=== PATIENT | female | born 1995 | race Caucasian/White ===

== ENCOUNTER 2018-07-13 11:04 | Emergency (ER) | payer OTHER ==
[~2018-07-13] VITALS: Ht 157.5 cm; Wt 72.6 kg
--- NOTE | 2018-07-13 11:35 | ED Abdominal Pain ---
General Stated Complaint: ABD PAIN; FEVER Source of Information: Patient, RN Notes Reviewed Exam Limitations: No Limitations History of Present Illness Date Seen by Provider: July 13, 2018 Time Seen by Provider: 11:35 Initial Comments Patient presents c/ c/o RLQ abdominal pain that radiates to her right flank. States she awoke c/ the pain this AM. (+) associated fever. (+) PMH of UTI's. Timing/Duration: 1-3 Hours Severity/Quality: Moderate (6/10) Location: RLQ Radiation: Flank (right) Activities at Onset: None Modifying Factors: Improves With Other (nonr) Associated Symptoms: Denies Symptoms (x/ as noted.), Fever/Chills Allergies and Home Medications Allergies Coded Allergies: Sulfa (Sulfonamide Antibiotics) (Verified Allergy, Unknown, 07/13/18) Home Medications Cefuroxime Axetil 250 Mg Tablet, 250 MG PO BID Prescribed by: WYATT DE LA TORRE on 07/13/18 1320 Patient Home Medication List Home Medication List Reviewed: Yes Review of Systems Review of Systems Constitutional: see HPI Gastrointestinal: See HPI, Abdominal Pain (RLQ) Musculoskeletal: see HPI, back pain (right flank) All Other Systems Reviewed Negative Unless Noted: Yes (Negative excepted noted.) Physical Exam Vital Signs Vital Signs - First Documented 07/13/18 07/13/18 11:51 13:28 Temp 98.4 Pulse 83 Resp 18 B/P (MAP) 120/68 (85) Pulse Ox 99 O2 Delivery Room Air Capillary Refill : Height/Weight/BMI Height: '" Weight: lbs. oz. kg; BMI Method: General Appearance: WD/WN, moderate distress, obese Respiratory: no respiratory distress Cardiovascular: regular rate, rhythm Gastrointestinal: soft, tenderness (RLQ) Rectal: deferred Back: CVA tenderness (R) Neurologic/Psychiatric: no motor/sensory deficits, alert, depressed affect ( tearful) Skin: warm/dry; No rash Progress/Results/Core Measures Results/Orders Lab Results Laboratory Tests Test 07/13/18 11:20 07/13/18 12:11 Range/Units Urine Color YELLOW Urine Clarity CLOUDY Urine pH 8.0 5-9 Urine Specific Tillson 1.015 L 1.016-1.022 Urine Protein NEGATIVE NEGATIVE Urine Glucose (UA) NEGATIVE NEGATIVE Urine Ketones NEGATIVE NEGATIVE Urine Nitrite NEGATIVE NEGATIVE Urine Bilirubin NEGATIVE NEGATIVE Urine Urobilinogen 0.2 NORMAL MG/DL Urine Leukocyte Esterase TRACE H NEGATIVE Urine RBC (Auto) NEGATIVE NEGATIVE Urine RBC 0-2 /HPF Urine WBC 2-5 /HPF Urine Squamous Epithelial Cells 5-10 /HPF Urine Crystals NONE /LPF Urine Bacteria LARGE H /HPF Urine Casts NONE /LPF Urine Mucus NONE /LPF Urine Culture Indicated YES Urine Test NEGATIVE NEGATIVE Urine Chlamydia trachomatis RNA Not Detected Not Detected Urine Neisseria gonorrhoeae RNA Not Detected Not Detected White Blood Count 18.3 H 4.3-11.0 10^3/uL Red Blood Count 4.92 4.35-5.85 10^6/uL Hemoglobin 13.5 11.5-16.0 G/DL Hematocrit 41 35-52 % Mean Corpuscular Volume 84 80-99 FL Mean Corpuscular Hemoglobin 27 25-34 PG Mean Corpuscular Hemoglobin Concent 33 32-36 G/DL Red Cell Distribution Width 13.2 10.0-14.5 % Platelet Count 289 130-400 10^3/uL Mean Platelet Volume 9.6 7.4-10.4 FL Neutrophils (%) (Auto) 81 H 42-75 % Lymphocytes (%) (Auto) 11 L 12-44 % Monocytes (%) (Auto) 7 0-12 % Eosinophils (%) (Auto) 0 0-10 % Basophils (%) (Auto) 0 0-10 % Neutrophils # (Auto) 14.7 H 1.8-7.8 X 10^3 Lymphocytes # (Auto) 2.0 1.0-4.0 X 10^3 Monocytes # (Auto) 1.3 H 0.0-1.0 X 10^3 Eosinophils # (Auto) 0.1 0.0-0.3 10^3/uL Basophils # (Auto) 0.0 0.0-0.1 10^3/uL Neutrophils % (Manual) 87 % Lymphocytes % (Manual) 8 % Monocytes % (Manual) 3 % Eosinophils % (Manual) 0 % Basophils % (Manual) 0 % Band Neutrophils 2 % Sodium Level 139 135-145 MMOL/L Potassium Level 4.3 3.6-5.0 MMOL/L Chloride Level 102 98-107 MMOL/L Carbon Dioxide Level 25 21-32 MMOL/L Anion Gap 12 5-14 MMOL/L Blood Urea Nitrogen 12 7-18 MG/DL Creatinine 0.89 0.60-1.30 MG/DL Estimat Glomerular Filtration Rate > 60 BUN/Creatinine Ratio 13 Glucose Level 104 70-105 MG/DL Calcium Level 8.9 8.5-10.1 MG/DL Corrected Calcium 8.9 8.5-10.1 MG/DL Total Bilirubin 0.6 0.1-1.0 MG/DL Aspartate Amino Transf (AST/SGOT) 15 5-34 U/L Alanine Aminotransferase (ALT/SGPT) 15 0-55 U/L Alkaline Phosphatase 68 40-136 U/L Total Protein 7.4 6.4-8.2 GM/DL Albumin 4.0 3.2-4.5 GM/DL Micro Results Microbiology 07/13/18 Urine Culture - Final, Complete 3 or more isolates My Orders Orders - WYATT DE LA TORRE DO Ua Culture If Indicated (07/13/18 11:20) Hcg,Qualitative Urine (07/13/18 11:20) Urine Culture (07/13/18 11:20) Ed Iv/Invasive Line Start (07/13/18 11:50) Cbc With Automated Diff (07/13/18 11:50) Comprehensive Metabolic Panel (07/13/18 11:50) Neis James Dna Urine Test (07/13/18 11:50) Chlamydia Trachomatis Urine (07/13/18 11:50) Ct Abdomen/Pelvis W (07/13/18 11:53) Ketorolac Injection (Toradol Injection) (07/13/18 12:00) Iohexol Injection (Omnipaque 350 Mg/Ml 1 (07/13/18 12:00) Received Contrast (Hold Metformin- Contr (07/13/18 12:00) Sodium Chloride Flush (Catheter Flush Sy (07/13/18 12:00) Ns (Ivpb) (Sodium Chloride 0.9% Ivpb Bag (07/13/18 12:00) Manual Differential (07/13/18 12:11) Ceftriaxone For Iv Use (Rocephin For I (07/13/18 13:15) Medications Given in ED Vital Signs/I&O 07/13/18 07/13/18 11:51 13:28 Temp 98.4 98.3 Pulse 83 86 Resp 18 18 B/P (MAP) 120/68 (85) 120/72 (88) Pulse Ox 99 O2 Delivery Room Air Progress Progress Note : Progress Note symptoms improved p/ fluids and meds. Diagnostic Imaging Diagonstic Imaging: CT Plain Films/CT/US/NM/MRI: abdomen, pelvis (NAD) Departure Impression Primary Impression: Urinary tract infection Additional Impressions: Ovarian cyst Abdominal pain Disposition: 01 HOME, SELF-CARE Condition: Improved Departure-Patient Inst. Decision time for Depature: 13:16 Referrals: VANESSA FRANCO MD (PCP/Family) Primary Care Physician Patient Instructions: Ovarian Cyst (DC), Urinary Tract Infection, Adult (DC) Add. Discharge Instructions: RECOMMEND FOLLOW UP WITH EITHER DR. FRANCO, OR DR. VALDES REGARDING YOUR OVARIAN CYSTS. RECOMMEND 600 mg OF IBUPROFEN EVERY 6 HOURS FOR YOUR PAIN. MAY ALSO TAKE 1000 mg OF TYLENOL EVERY 6 HOURS IF NEEDED. DO NOT EXCEED 4000 mg OF TYLENOL IN A 24 HOUR PERIOD. Scripts Cefuroxime Axetil (Cefuroxime) 250 Mg Tablet 250 MG PO BID for UTI for 10 Days, #20 TAB 0 Refills Prov: WYATT DE LA TORRE DO 07/13/18 WYATT DE LA TORRE DO July 13, 2018 11:35
[2018-07-13 11:44] LABS: BACTERIA,URINE LARGE /HPF; BILIRUBIN,URINE NEGATIVE (NEGATIVE); CLARITY,URINE CLOUDY; COLOR,URINE YELLOW; GLUCOSE, URINE (UA) NEGATIVE (NEGATIVE); KETONES,URINE NEGATIVE (NEGATIVE); LEUKOCYTE ESTERASE ,URINE TRACE (NEGATIVE); NITRITE,URINE NEGATIVE (NEGATIVE); PROTEIN,URINE NEGATIVE (NEGATIVE); RBC,URINE 0-2 /HPF; UROBILINOGEN,URINE 0.2 MG/DL (NORMAL)
[2018-07-13 11:45] LABS: HCG,QUALITATIVE URINE NEGATIVE (NEGATIVE)
[2018-07-13] MEDS ORDERED: HOLD METFORMIN - RECEIVED CONTRAST 20 ML VIAL IV SCH (12:00)
[2018-07-13] MEDS ORDERED: IOHEXOL 350 MG/ML 100 ML (OMNIPAQUE 350) VIAL IV ONE (12:00)
[2018-07-13] MEDS ORDERED: KETOROLAC 30 MG/ML VIAL IV ONE (12:00)
[2018-07-13] MEDS ORDERED: CATHETER FLUSH 10 ML SYR IV PRN (12:00)
[2018-07-13] MEDS ORDERED: NS 100 ML (IVPB) BAG IV ONE (12:00)
[2018-07-13 12:20] LABS: HEMATOCRIT 41 % (35-52); HEMOGLOBIN 13.5 G/DL (11.5-16.0); MEAN CORPUSCULAR HEMOGLOBIN 27 PG (25-34); MEAN CORPUSCULAR HGB CONC 33 G/DL (32-36); MEAN CORPUSCULAR VOLUME 84 FL (80-99); PLATELET COUNT 289 10^3/uL (130-400); RED CELL DISTRIBUTION WIDTH 13.2 % (10.0-14.5); WHITE BLOOD COUNT 18.3 10^3/uL (4.3-11.0)
[2018-07-13 12:21] LABS: BASOPHILS % (AUTO) 0 % (0-10); EOSINOPHILS # (AUTO) 0.1 10^3/uL (0.0-0.3); EOSINOPHILS % (AUTO) 0 % (0-10); LYMPHOCYTES % (AUTO) 11 % (12-44); MEAN PLATELET VOLUME 9.6 FL (7.4-10.4); MONOCYTES # (AUTO) 1.3 X 10^3 (0.0-1.0); MONOCYTES % (AUTO) 7 % (0-12); NEUTROPHILS # (AUTO) 14.7 X 10^3 (1.8-7.8); NEUTROPHILS % (AUTO) 81 % (42-75)
[2018-07-13 12:41] LABS: BAND NEUTROPHILS 2 %; BASOPHILS % (MANUAL) 0 %; EOSINOPHILS % (MANUAL) 0 %; LYMPHOCYTES % (MANUAL) 8 %; MONOCYTES % (MANUAL) 3 %; NEUTROPHILS % (MANUAL) 87 %
[2018-07-13 12:43] LABS: CARBON DIOXIDE 25 MMOL/L (21-32); CHLORIDE 102 MMOL/L (98-107); POTASSIUM 4.3 MMOL/L (3.6-5.0); SODIUM 139 MMOL/L (135-145)
[2018-07-13 12:44] LABS: ALANINE AMINOTRANSFERASE 15 U/L (0-55); ALKALINE PHOSPHATASE 68 U/L (40-136); BILIRUBIN,TOTAL 0.6 MG/DL (0.1-1.0); BUN/CREATININE RATIO 13; CALCIUM 8.9 MG/DL (8.5-10.1); CREATININE SERUM 0.89 MG/DL (0.60-1.30); GFR ESTIMATED > 60; GLUCOSE 104 MG/DL (70-105)
[2018-07-13 12:45] LABS: TOTAL PROTEIN 7.4 GM/DL (6.4-8.2)
--- NOTE | 2018-07-13 13:07 | Diagnostic Imaging Report ---
PROCEDURE: CT abdomen and pelvis with contrast. TECHNIQUE: Multiple contiguous axial images were obtained through the abdomen and pelvis after administration of intravenous contrast. Auto Exposure Controls were utilized during the CT exam to meet ALARA standards for radiation dose reduction. INDICATION: Right flank pain radiating to the back. COMPARISON: No prior studies are available for comparison. FINDINGS: The lung bases are clear. No discrete liver mass is seen. Gallbladder is surgically absent. No biliary ductal dilatation is seen. Pancreas and spleen are unremarkable. There is no adrenal mass identified. Kidneys are unremarkable. No hydronephrosis is detected. The aorta is non-aneurysmal. The bowel loops appears to be normal caliber. Multiple cysts are identified in the pelvis, likely ovarian. Largest cyst on the right measures 2.8 cm. Largest cyst on the left is 3.8 cm. Uterus and bladder are unremarkable. There is a small amount of free fluid which is likely physiologic. The appendix is visualized and unremarkable. IMPRESSION: Bilateral adnexal cysts, likely ovarian. No other significant abnormality is identified. Dictated by: Dictated on workstation # [id number]
[2018-07-13] MEDS ORDERED: cefTRIAXone FOR IV USE 1,000 MG in WATER (STERILE) FOR INJECTION 10 ML IV ONE (13:15)
[2018-07-13] MEDS ORDERED: CEFU250T80 PO (13:20)
[2018-07-13 13:28] VITALS: BP 120/72
== END 2018-07-13 13:33 | disposition home or self-care (01) ==
LOC: ER FS 11:06
DX: N39.0 Urinary tract infection, site not specified (principal); N83.201 Unspecified ovarian cyst, right side; N83.202 Unspecified ovarian cyst, left side; Z88.2 Allergy status to sulfonamides
CPT/HCPCS: 36415; 74177; 80053; 81000; 84703; 85007; 85027; 87088; 87491; 87591; 96374; 96375

== ENCOUNTER 2018-09-18 23:13 | Emergency (ER) | payer OTHER ==
[~2018-09-18] VITALS: Ht 157.5 cm; Wt 72.6 kg
[~2018-09-18 23:13] MED LIST: CEFU250T80 PO
--- OUTSIDE RECORDS SUMMARY | 2018-09-18 23:18 | XMS REPORT | Continuity of Care Document ---
Author Organization Unknown Address Unknown Allergies Active Description Code Type Severity Reaction Onset Reported/Identified Relationship to Patient Clinical Status Yes Sulfa (Sulfonamide Antibiotics) [id number] Drug Allergy Unknown N/A 07/13/2018 Medications There is no data. Problems Date Dx Coded Attending Type Code Diagnosis Diagnosed By 07/15/2018 WYATT DE LA TORRE DO, Ot N39.0 URINARY TRACT INFECTION, SITE NOT SPECIF 07/15/2018 WYATT DE LA TORRE DO, Ot N83.201 UNSPECIFIED OVARIAN CYST, RIGHT SIDE 07/15/2018 WYATT DE LA TORRE DO, Ot N83.202 UNSPECIFIED OVARIAN CYST, LEFT SIDE 07/15/2018 WYATT DE LA TORRE DO, Ot R10.31 RIGHT LOWER QUADRANT PAIN 07/15/2018 WYATT DE LA TORRE DO, Ot Z88.2 ALLERGY STATUS TO SULFONAMIDES STATUS Procedures There is no data. Results Test Result Range Complete urinalysis with reflex to culture - 07/13/18 11:20 Urine color determination YELLOW NRG Urine clarity determination CLOUDY NRG Urine pH measurement by test strip 8.0 5-9 Specific gravity of urine by test strip 1.015 1.016-1.022 Urine protein assay by test strip, semi-quantitative NEGATIVE NEGATIVE Urine glucose detection by automated test strip NEGATIVE NEGATIVE Erythrocytes detection in urine sediment by light microscopy NEGATIVE NEGATIVE Urine ketones detection by automated test strip NEGATIVE NEGATIVE Urine nitrite detection by test strip NEGATIVE NEGATIVE Urine total bilirubin detection by test strip NEGATIVE NEGATIVE Urine urobilinogen measurement by automated test strip (mass/volume) 0.2 mg/dL NORMAL Urine leukocyte esterase detection by dipstick TRACE NEGATIVE Automated urine sediment erythrocyte count by microscopy (number/high power field) [HPF] NRG Automated urine sediment leukocyte count by microscopy (number/high power field) [HPF] NRG Bacteria detection in urine sediment by light microscopy LARGE NRG Squamous epithelial cells detection in urine sediment by light microscopy 5-10 NRG Crystals detection in urine sediment by light microscopy NONE NRG Casts detection in urine sediment by light microscopy NONE NRG Mucus detection in urine sediment by light microscopy NONE NRG Complete urinalysis with reflex to culture YES NRG Urine beta human chorionic gonadotropin (hCG) measurement - 07/13/18 11:20 Urine beta human chorionic gonadotropin (hCG) measurement NEGATIVE NEGATIVE Bacterial urine culture - 07/13/18 11:20 Bacterial urine culture 3 OR MORE NRG COLONY COUNT >100,000/ML NRG FTX;REPORTABLE GRAM POSITIVE ISOLATES; SUGGESTING NRG FREE TEXT ENTRY 2 PROBABLE COLLECTION CONTAMINATION WITH NRG FREE TEXT ENTRY 3 SKIN KRYSTYNA. NO SUSCEPTIBILITY PERFORMED. NRG Chlamydia DNA amp probe, urine - 07/13/18 11:20 Chlamydia DNA amp probe, urine Not Detected Not Detected Urine Neisseria gonorrhoeae DNA assay - 07/13/18 11:20 Gonorrhea amp DNA-urine Not Detected Not Detected Complete blood count (CBC) with automated white blood cell (WBC) differential - 07/13/18 12:11 Blood leukocytes automated count (number/volume) 18.3 10*3/uL 4.3-11.0 Blood erythrocytes automated count (number/volume) 4.92 10*6/uL 4.35-5.85 Venous blood hemoglobin measurement (mass/volume) 13.5 g/dL 11.5-16.0 Blood hematocrit (volume fraction) 41 % 35-52 Automated erythrocyte mean corpuscular volume 84 [foz_us] 80-99 Automated erythrocyte mean corpuscular hemoglobin (mass per erythrocyte) 27 pg 25-34 Automated erythrocyte mean corpuscular hemoglobin concentration measurement (mass/volume) 33 g/dL 32-36 Automated erythrocyte distribution width ratio 13.2 % 10.0- 14.5 Automated blood platelet count (count/volume) 289 10*3/uL 130-400 Automated blood platelet mean volume measurement 9.6 [foz_us] 7.4-10.4 Automated blood neutrophils/100 leukocytes 81 % 42-75 Automated blood lymphocytes/100 leukocytes 11 % 12-44 Blood monocytes/100 leukocytes 7 % 0-12 Automated blood eosinophils/100 leukocytes 0 % 0-10 Automated blood basophils/100 leukocytes 0 % 0-10 Blood neutrophils automated count (number/volume) 14.7 10*3 1.8-7.8 Blood lymphocytes automated count (number/volume) 2.0 10*3 1.0-4.0 Blood monocytes automated count (number/volume) 1.3 10*3 0.0- 1.0 Automated eosinophil count 0.1 10*3/uL 0.0-0.3 Automated blood basophil count (count/volume) 0.0 10*3/uL 0.0-0.1 Blood manual differential performed detection - 07/13/18 12:11 Blood monocytes/100 leukocytes 3 % NRG Manual blood segmented neutrophils/100 leukocytes 87 % NRG Blood band neutrophils/100 leukocytes 2 % NRG Manual blood lymphocytes/100 leukocytes 8 % NRG Manual eosinophils/100 leukocytes in nose 0 % NRG Manual blood basophils/100 leukocytes 0 % NRG Comprehensive metabolic panel - 07/13/18 12:11 Serum or plasma sodium measurement (moles/volume) 139 mmol/L 135-145 Serum or plasma potassium measurement (moles/volume) 4.3 mmol/L 3.6-5.0 Serum or plasma chloride measurement (moles/volume) 102 mmol/L 98-107 Carbon dioxide 25 mmol/L 21-32 Serum or plasma anion gap determination (moles/volume) 12 mmol/L 5-14 Serum or plasma urea nitrogen measurement (mass/volume) 12 mg/dL 7-18 Serum or plasma creatinine measurement (mass/volume) 0.89 mg/dL 0.60-1.30 Serum or plasma urea nitrogen/creatinine mass ratio 13 NRG Serum or plasma creatinine measurement with calculation of estimated glomerular filtration rate > NRG Serum or plasma glucose measurement (mass/volume) 104 mg/dL 70-105 Serum or plasma calcium measurement (mass/volume) 8.9 mg/dL 8.5-10.1 Serum or plasma total bilirubin measurement (mass/volume) 0.6 mg/dL 0.1-1.0 Serum or plasma alkaline phosphatase measurement (enzymatic activity/volume) 68 U/L 40-136 Serum or plasma aspartate aminotransferase measurement (enzymatic activity/volume) 15 U/L 5-34 Serum or plasma alanine aminotransferase measurement (enzymatic activity/volume) 15 U/L 0-55 Serum or plasma protein measurement (mass/volume) 7.4 g/dL 6.4-8.2 Serum or plasma albumin measurement (mass/volume) 4.0 g/dL 3.2-4.5 CALCIUM CORRECTED 8.9 mg/dL 8.5-10.1 Encounters ACCT No. Visit Date/Time Discharge Status Pt. Type Provider Facility Loc./Unit Complaint [id number] 07/15/2018 08:30:00 07/15/2018 23:59:59 CLS Outpatient VANESSA FRANCO [facility] [id number] 07/13/2018 11:06:00 07/13/2018 13:33:00 DIS Outpatient WYATT DE LA TORRE DO [facility] ER FS ABD PAIN; FEVER
--- OUTSIDE RECORDS SUMMARY | 2018-09-18 23:18 | XMS REPORT ---
Author Author RADHA PACKER [facility] Address [address] [place] [address] Care Team Providers Care Sample Puller Name Role Phone RADHA PACKER Unavailable PROBLEMS Type Condition ICD9-CM Code [id number] Code Onset Dates Condition Status SNOMED Code Problem Fever R50.9 Mar, 0 [id number] Problem Fever 780.60 Mar, 0 [id number] Problem Patellar subluxation 836.3 10 Nov, 2013 0 264445392 Problem Patellar subluxation S83.003A 10 Nov, 2013 0 133181856 Problem Status post laparoscopic cholecystectomy V45.89 14 Jan, 2012 0 [id number] Problem Status post laparoscopic cholecystectomy Z90.49 14 Jan, 2012 0 [id number] ALLERGIES No Information ENCOUNTERS Encounter Location Date Diagnosis [facility] [id number] [place] [id number] July, Follow up Z09 [facility] [address] [place] [address] May, Atypical mole D22.9 [facility] [address] [place] [address] Apr, Acute URI J06.9 [facility] [id number], [place] [address] Feb, [facility] [id number] [address] Nov, [facility] [id number] [place] [phone] July, [facility] [id number], [place] [address] Feb, IMMUNIZATIONS No Known Immunizations SOCIAL HISTORY Never Assessed REASON FOR VISIT cough, sore throat started yesterday morning, using cough drops, ears feel full mony [facility] PLAN OF CARE Activity Details Follow Up prn Reason: VITAL SIGNS Height 62 in 2018-05-05 Weight 165 lbs 2018-05-05 Temperature 99.2 degrees Fahrenheit 2018-05-05 Heart Rate 72 bpm 2018-05-05 Respiratory Rate 14 2018-05-05 BMI 30.18 kg/m2 2018-05-05 Blood pressure systolic 116 mmHg 2018-05-05 Blood pressure diastolic 80 mmHg 2018-05-05 MEDICATIONS No Known Medications RESULTS No Results PROCEDURES No Known procedures INSTRUCTIONS MEDICATIONS ADMINISTERED No Known Medications MEDICAL (GENERAL) HISTORY Type Description Date Surgical History gallbladder removed Surgical History Lt arm reset Surgical History at age [age] she had exploratory surgery for swallowing a toothpick. Hospitalization History spider bite age 18 Hospitalization History gallbladder and exploratory surgery
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
[2018-09-19 00:35] VITALS: BP 143/87
--- NOTE | 2018-09-19 07:08 | Diagnostic Imaging Report ---
EXAMINATION: Left hand radiographs, 3 views. COMPARISON: None. HISTORY: 22-year-old female, left second and third metacarpal pain. FINDINGS: There is no identified acute fracture. Bone mineralization and alignment appear unremarkable. There is no identified bone erosion. The joint spaces are well preserved. There is no identified radiopaque foreign body. IMPRESSION: 1. Unremarkable radiographs of the left hand. Dictated by: Dictated on workstation # [id number]
== END 2018-09-19 00:33 | disposition home or self-care (01) ==
LOC: EDUNIT# 23:13 → ER FS 23:14
DX: S60.222A Contusion of left hand, initial encounter (principal); Z88.2 Allergy status to sulfonamides; X58.XXXA Exposure to other specified factors, initial encounter
CPT/HCPCS: 73130

== ENCOUNTER 2019-01-07 21:20 | Emergency (ER) | payer OTHER ==
[~2019-01-07] VITALS: Ht 154.9 cm; Wt 52.6 kg
--- NOTE | 2019-01-07 21:32 | ED GU-Female ---
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 She is a at 20 weeks 0 days by an estimated due date of May 26. She follows with Dr. Childers and had a ultrasound earlier in the which did not demonstrate any kind of placenta previa or low-lying placenta that she is aware of. She said no problems with dependency thus far. She is not having any nausea but she is having some generalized abdominal pain and took Tylenol 3 about 45 minutes prior. She states the last time she had vaginal intercourse was 2-1/2 to 3 weeks ago. She's not having any nausea dysuria diarrhea or constipation. She describes it as spotting like she is starting her period. Allergies and Home Medications Allergies Coded Allergies: Sulfa (Sulfonamide Antibiotics) (Verified Allergy, Unknown, 07/13/18) Home Medications Cefuroxime Axetil 250 Mg Tablet, 250 MG PO BID Prescribed by: WYATT DE LA TORRE on 07/13/18 1320 Patient Home Medication List Home Medication List Reviewed: Yes Review of Systems Review of Systems Constitutional: No chills, No fever EENTM: No ear pain, No eye pain Respiratory: No cough, No short of breath Cardiovascular: No chest pain, No edema Gastrointestinal: see HPI, abdominal pain; No constipation, No diarrhea, No nausea Genitourinary: see HPI; denies discharge, denies dysuria : Yes Expected Date of Delivery: May 27, 2019 Musculoskeletal: No back pain, No joint pain Past Uuohdnj-Leynup-Lxhjoe Hx Patient Social History Alcohol Use: Denies Use Recreational Drug Use: No Smoking Status: Never a Smoker 2nd Hand Smoke Exposure: No Recent Foreign Travel: No Recent Hopitalizations: No Seasonal Allergies Seasonal Allergies: No Past Medical History Surgeries: Yes Abdominal, Gallbladder, Orthopedic Respiratory: No Cardiac: No Neurological: No Genitourinary: No Gastrointestinal: No Musculoskeletal: No Endocrine: No HEENT: No Cancer: No Psychosocial: No Integumentary: No Blood Disorders: No Physical Exam Vital Signs Vital Signs - First Documented 01/07/19 21:25 Temp 36.8 Pulse 87 Resp 20 B/P (MAP) 122/77 (92) O2 Delivery Room Air Capillary Refill : Height, Weight, BMI Height: 5'2.00" Weight: 160lbs. oz. 72.368263bu; BMI Method:Stated General Appearance: WD/WN, mild distress HEENT: PERRL/EOMI, pharynx normal Cardiovascular: normal peripheral pulses, regular rate, rhythm Respiratory: no respiratory distress, no accessory muscle use Gastrointestinal: normal bowel sounds, soft; No guarding; tenderness (generalized, mild all 4 quadrants), other (gravid) Genital/Rectal: normal genital exam, normal vaginal exam, other (leukorrhea of . No blood seen on the vaginal vault. Mucous plug seen at the closed cervical os) Extremities: normal inspection, normal capillary refill Neurologic/Psychiatric: alert, normal mood/affect, oriented x 3 Progress/Results/Core Measures Suspected Sepsis SIRS Temperature: Pulse: Respiratory Rate: Blood Pressure / Mean: Results/Orders Lab Results Laboratory Tests Test 01/07/19 21:45 Range/Units Urine Color YELLOW Urine Clarity CLEAR Urine pH 6.0 5-9 Urine Specific [place] <=1.005 1.016-1.022 Urine Protein NEGATIVE NEGATIVE Urine Glucose (UA) NEGATIVE NEGATIVE Urine Ketones NEGATIVE NEGATIVE Urine Nitrite NEGATIVE NEGATIVE Urine Bilirubin NEGATIVE NEGATIVE Urine Urobilinogen 0.2 NORMAL MG/DL Urine Leukocyte Esterase NEGATIVE NEGATIVE Urine RBC (Auto) NEGATIVE NEGATIVE Urine RBC NONE /HPF Urine WBC 10-25 H /HPF Urine Squamous Epithelial Cells 25-50 H /HPF Urine Crystals NONE /LPF Urine Bacteria FEW H /HPF Urine Casts NONE /LPF Urine Mucus NEGATIVE /LPF Urine Culture Indicated YES My Orders Orders - SARAH SANCHEZ Ua Culture If Indicated (01/07/19 21:22) Urine Culture (01/07/19 21:45) Vital Signs/I&O 01/07/19 21:25 Temp 36.8 Pulse 87 Resp 20 B/P (MAP) 122/77 (92) O2 Delivery Room Air Capillary Refill : Progress Note : Time: 21:31 Progress Note We do not have access to her previous ultrasound to review. Plan to get a urinalysis, heart tones and place speculum in the vagina to rule out any intravaginal lesion. We do not have ultrasound available at this time. Her distress seems mild and she has aseptic vital signs. We will discuss setting up outpatient ultrasound versus sending her somewhere tonight based on the rest of her workup. heart tones 138. Consults Consults : Consulting Physician: JAMES VALDES DO Consults Notes Discussed case lab and examination and he agrees with her keeping her outpatient ultrasound follow-up appointment. Departure Impression Primary Impression: Vaginal bleeding before 22 weeks gestation Disposition: HOME, SELF-CARE Condition: Stable Departure-Patient Inst. Decision time for Depature: 22:02 Referrals: VANESSA FRANCO MD (PCP/Family) Primary Care Physician Patient Instructions: Bleeding With (DC) Add. Discharge Instructions: Keep your follow-up appointment this week with Dr. Childers for ultrasound. Follow-up sooner if you're having any other concerns. If you start producing chicken egg size blood clots or are going through 1 pad per hour or more with the bleeding then you need to return to the ER. If you have severe abdominal pain that she cannot walk through then you should also return to the ER. 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 All discharge instructions reviewed with patient and/or family. Voiced understanding. Work/School Note: Work Release Form Date Seen in the Emergency Department: Jan 07, 2019 Return to Work: Jan 08, 2019 Restrictions: No Restrictions SARAH SANCHEZ Jan 07, 2019 21:32 POS
[2019-01-07 21:53] LABS: BILIRUBIN,URINE NEGATIVE (NEGATIVE); CLARITY,URINE CLEAR; COLOR,URINE YELLOW; GLUCOSE, URINE (UA) NEGATIVE (NEGATIVE); KETONES,URINE NEGATIVE (NEGATIVE); LEUKOCYTE ESTERASE ,URINE NEGATIVE (NEGATIVE); NITRITE,URINE NEGATIVE (NEGATIVE); PROTEIN,URINE NEGATIVE (NEGATIVE)
--- NOTE | 2019-01-07 21:53 | NUR ---
PT MOVED TO ROOM [facility] FOR EXAMINATION.
[2019-01-07 21:58] LABS: BACTERIA,URINE FEW /HPF; SQUAMOUS EPITHELIAL CELL,UR 25-50 /HPF
[2019-01-07 22:11] VITALS: BP 122/71
== END 2019-01-07 22:11 | disposition home or self-care (01) ==
LOC: EDUNIT# 21:20 → ER FS 21:21
DX: O20.9 Hemorrhage in early pregnancy, unspecified (principal); Z3A.20 20 weeks gestation of pregnancy; Z88.2 Allergy status to sulfonamides
CPT/HCPCS: 81000; 87088; 99282

== ENCOUNTER 2019-02-19 23:52 | Outpatient (CLI) | payer OTHER ==
[~2019-02-19] VITALS: Ht 154.9 cm; Wt 79.7 kg
[2019-02-20 00:03] VITALS: BP 119/72
--- NOTE | 2019-02-20 00:10 | NUR ---
NADIA FREEMAN presented to unit via ambulation from ED, accompanied by SO, with c/o CONTRACTIONS. NADIA FREEMAN weighed, gowned, voided, and to bed. EFHM and TOCO applied, VS taken. NADIA FREEMAN oriented to bed controls, call light, TV, heat, and A/C controls.
[2019-02-20 00:14] VITALS: BP 119/72
[2019-02-20 00:25] LABS: BILIRUBIN,URINE NEGATIVE (NEGATIVE); CLARITY,URINE CLOUDY; COLOR,URINE YELLOW; GLUCOSE, URINE (UA) NEGATIVE (NEGATIVE); KETONES,URINE NEGATIVE (NEGATIVE); LEUKOCYTE ESTERASE ,URINE TRACE (NEGATIVE); NITRITE,URINE NEGATIVE (NEGATIVE); PROTEIN,URINE NEGATIVE (NEGATIVE)
[2019-02-20 00:33] LABS: AMORPHOUS SEDIMENT,UR LARGE AMOR URATES /LPF; BACTERIA,URINE MODERATE /HPF
[2019-02-20] MEDS ORDERED: D5 LR IV SOLUTION 1,000 ML IV ONE (00:37)
--- NOTE | 2019-02-20 00:37 | NUR ---
Dr Burks called with report, orders obtained and pt advised of POC with no questions at this time.
[2019-02-20] MEDS ORDERED: ceFAZolin 2 GM/50 ML NS 50 ML ONE (00:38)
[2019-02-20] MEDS: D5 LR IV SOLUTION 1,000 ML IV SCH ×2 (00:54→07:22)
[2019-02-20] MEDS: ceFAZolin 2 GM/50 ML NS 50 ML IV SCH ×2 (00:54→07:22)
[2019-02-20 02:25] VITALS: BP 111/55
--- NOTE | 2019-02-20 04:28 | NUR ---
Pt up to the BR to void
[2019-02-20 04:31] VITALS: BP 115/54
--- NOTE | 2019-02-20 07:40 | History & Physical-OB/GYN ---
History of Present Illness History of Present Illness Reason for visit/HPI Ms. Guevara presents to the hospital secondary to "contractions" at 27 weeks gestation Date of Admission February 19, 2019 Date Seen by a Provider: Feb 20, 2019 Time Seen by a Provider: 07:15 I consulted on this patient on 02/20/19 07:35 Attending Physician Anand Burks DO Admitting Physician Anand Burks DO Consult Allergies and Home Medications Allergies Coded Allergies: Sulfa (Sulfonamide Antibiotics) (Verified Allergy, Unknown, 07/13/18) Patient Home Medication List Home Medication List Reviewed: Yes Past Eharzmk-Omsiom-Nndknz Hx Patient Social History Marrital Status: single Number of Children: 0 Number of living children: 0 Employed/Student: employed Alcohol Use: Denies Use Recreational Drug Use: No 2nd Hand Smoke Exposure: No Recent Foreign Travel: No Contact w/other who traveled: No Recent Hopitalizations: No Recent Infectious Disease Expo: No Seasonal Allergies Seasonal Allergies: No Surgeries Yes Abdominal, Gallbladder, Orthopedic Respiratory No Cardiovascular No Neurological No Reproductive System Expected Date of Delivery: May 27, 2019 Hx : 1 Genitourinary No Gastrointestinal No Musculoskeletal No Endocrine History of Endocrine Disorders: No HEENT History of HEENT Disorders: No Cancer No Psychosocial History of Psychiatric Problem: No Integumentary History of Skin or Integumenta: No Blood Transfusions History of Blood Disorders: No Review of Systems Constitutional: see HPI Physical Exam Physical Exam Vital Signs Vital Signs Date Time Temp Pulse Resp B/P (MAP) Pulse Ox O2 Delivery O2 Flow Rate FiO2 02/20/19 04:31 36.5 73 18 115/54 (74) Room Air 02/20/19 02:25 36.8 76 18 111/55 (73) Room Air 02/20/19 00:14 36.6 75 18 119/72 (88) Room Air 02/20/19 00:03 36.3 75 18 97 Room Air Capillary Refill : Less Than 3 Seconds Labs Laboratory Tests 02/20/19 00:15: Urine Color YELLOW, Urine Clarity CLOUDY, Urine pH 7.0, Urine Specific [place] 1.020, Urine Protein NEGATIVE, Urine Glucose (UA) NEGATIVE, Urine Ketones NEGATIVE, Urine Nitrite NEGATIVE, Urine Bilirubin NEGATIVE, Urine Urobilinogen 0.2, Urine Leukocyte Esterase TRACE, Urine RBC (Auto) NEGATIVE, Urine RBC NONE, Urine WBC 2-5, Urine Squamous Epithelial Cells 2-5, Urine Crystals PRESENTH, Urine Amorphous Sediment LARGE LEANNA URATESH, Urine Bacteria MODERATEH, Urine Casts NONE, Urine Mucus MODERATEH, Urine Culture Indicated CULTURE PENDING General Appearance: No Apparent Distress, WD/WN Respiratory: Chest Non Tender, Lungs Clear, Normal Breath Sounds Cardiovascular: Regular Rate, Rhythm, No Murmur Abdominal: normal bowel sounds, non tender, other (Gravid) Extremity: Normal Inspection, Non Tender Assessment/Plan Assessment and Plan Intrauterine at 27 weeks 2. Pelvic Pain 3. Threatened Labor 4. UTI 5. Dehydration Plan: IV fluids and antibiotics. External Monitoring with observation Admission Diagnosis Intrauterine at 27 weeks 2. Pelvic Pain 3. Threatened Labor 4. UTI 5. Dehydration Admission Status: Observation ANAND BURKS DO Feb 20, 2019 07:40 POS
--- NOTE | 2019-02-20 07:47 | Discharge Summary ---
Diagnosis/Chief Complaint Date of Admission February 19, 2019 Date of Discharge February 20, 2019 Discharge Date: Feb 20, 2019 Discharge Time: 08:30 Admission Diagnosis Admission Diagnosis Intrauterine at 27 weeks 2. Pelvic Pain 3. Threatened Labor 4. UTI 5. Dehydration Discharge Diagnosis Intrauterine at 27 weeks 2. Pelvic Pain 3. Threatened Labor 4. UTI 5. Dehydration Reason Hospital Visit Ms. Guevara presents to the hospital secondary to "contractions" at 27 weeks gestation Discharge Summary Hospital Course Was the Problem List Reviewed?: Yes Hospital Course Ms. Guevara was admitted for pelvic pain at 27 weeks gestation. She was placed on the External Monitor and observed. Also, a Urinalysis was obtained. Her urinalysis demonstrated a UIT and dehydration. She was started on IV fluids and antibiotics. After several doses of IV antibiotics Ms. Guevara felt much better. We will discharge her to home with instructions, prescriptions and a follow up appointment. Labs Laboratory Tests 02/20/19 00:15: Urine Crystals PRESENTH, Urine Amorphous Sediment LARGE LEANNA URATESH, Urine Bacteria MODERATEH, Urine Mucus MODERATEH Procedures None. Discharge Physical Examination Allergies: Coded Allergies: Sulfa (Sulfonamide Antibiotics) (Verified Allergy, Unknown, 07/13/18) Vitals & I&Os Vital Signs Date Time Temp Pulse Resp B/P (MAP) Pulse Ox O2 Delivery O2 Flow Rate FiO2 02/20/19 04:31 36.5 73 18 115/54 (74) Room Air 02/20/19 00:03 97 General Appearance: Alert, Oriented X3, Cooperative HEENT: Atraumatic Respiratory: Clear to Auscultation Cardiovascular: Regular Rate, No Murmurs Abdominal: Normal Bowel Sounds, No Tenderness Extremities: No Clubbing, No Cyanosis, No Edema Skin: No Rashes Neuro: Normal Gait, Normal Speech Psych/Mental Status: Mental Status NL Discharge Home Medications Reviewed and agree with Discharge Medication list on patient's Discharge Instruction sheet Instructions to Patient/Family Please see electronic discharge instructions given to patient. JAMES VALDES DO Feb 20, 2019 07:47 POS
[2019-02-20] MEDS ORDERED: NITR-65 PO (07:48)
--- NOTE | 2019-02-20 07:50 | NUR ---
dr manriquez spoke with this rn and states that pt may dc to home after antibiotics are completed. this rn will notify pt and give discharge instructions.
--- NOTE | 2019-02-20 08:15 | NUR ---
DISCHARGE PAPERS PROVIDED AND REVIEWED WITH PT PER Joshua GOODWIN RN. PT VERBALIZES UNDERSTANDING. PAPER SIGNED.
--- NOTE | 2019-02-20 08:18 | NUR ---
PT DISCHARGED FROM [facility] TO [facility] IN STABLE CONDITION.
== END 2019-02-20 08:18 | disposition home or self-care (01) ==
LOC: WSo 23:52 → LDRP 23:52 → WSo 02-20 08:18
PROVIDERS: ATTEND Obstetrics & Gynecology
DX: O47.02 False labor before 37 completed weeks of gestation, second trimester (principal); O23.42 Unspecified infection of urinary tract in pregnancy, second trimester; O26.892 Other specified pregnancy related conditions, second trimester; E86.0 Dehydration; Z3A.27 27 weeks gestation of pregnancy
CPT/HCPCS: 81000; 87088

== ENCOUNTER 2019-03-27 21:46 | Outpatient (CLI) | payer OTHER ==
[~2019-03-27] VITALS: Ht 154.9 cm; Wt 81.8 kg
[~2019-03-27 21:46] MED LIST changes: +NITR-65 PO
--- NOTE | 2019-03-27 21:52 | NUR ---
NADIA FREEMAN presented to unit via ambulation from ED, accompanied by family member, with c/o DECREASED MOVEMENT. NADIA FREEMAN weighed, gowned, voided, and to bed. EFHM and TOCO applied, VS taken. NADIA FREEMAN oriented to bed controls, call light, TV, heat, and A/C controls.
[2019-03-27 22:04] VITALS: BP 126/69
[2019-03-27 22:08] LABS: BILIRUBIN,URINE NEGATIVE (NEGATIVE); CLARITY,URINE CLEAR; COLOR,URINE YELLOW; GLUCOSE, URINE (UA) NEGATIVE (NEGATIVE); KETONES,URINE NEGATIVE (NEGATIVE); LEUKOCYTE ESTERASE ,URINE 1+ (NEGATIVE); NITRITE,URINE NEGATIVE (NEGATIVE); PROTEIN,URINE NEGATIVE (NEGATIVE)
[2019-03-27 22:24] LABS: BACTERIA,URINE MODERATE /HPF
[2019-03-27] MEDS ORDERED: PREN-142 PO (22:30)
--- NOTE | 2019-03-27 22:35 | NUR ---
Discharge instructions discussed with pt and family member. Pt denies any questions. Signature sheet signed, placed on chart. Encouraged pt to call with any concerns. Offered wheelchair, denied per pt. Pt ambulating off unit at time to private vehicle with family member at side. No signs of distress noted.
--- NOTE | 2019-03-28 08:27 | Physician Query-Final Dx ---
JOSE LUJAN 03/28/19 0827: Clinic Account Progress/Dx Physician Query: Please give diagnosis Please include # weeks gestation Date of Service Mar 27, 2019 at 21:46 JAMES VALDES DO 03/28/19 1834: Clinic Account Progress/Dx Physician Query: Please give diagnosis DIAGNOSIS: Diagnosis Intrauterine at 31 weeks 2. Decreased Movement Progress Note: Patient was admitted for observation. Placed on the External Monitor, had a Reactive NST. While in Labor & Delivery was able to experience movement. Consequently, she was discharged to home. JOSE LUJAN Mar 28, 2019 08:27 JAMES VALDES DO Mar 28, 2019 18:34
== END 2019-03-27 22:35 | disposition home or self-care (01) ==
LOC: LDRP 21:46 → WSo 21:46
PROVIDERS: ATTEND Obstetrics & Gynecology
DX: O36.8130 Decreased fetal movements, third trimester, not applicable or unspecified (principal); Z3A.31 31 weeks gestation of pregnancy
CPT/HCPCS: 81000

== ENCOUNTER 2019-05-02 16:55 | Outpatient (CLI) | payer OTHER ==
[~2019-05-02] VITALS: Ht 154.9 cm; Wt 85.1 kg
[~2019-05-02 16:55] MED LIST changes: +PREN-142 PO
--- NOTE | 2019-05-02 17:00 | NUR ---
NADIA FREEMAN presented to unit via from ED, accompanied by mother, with c/o CONTRACTIONS. NADIA FREEMAN weighed, gowned, voided, and to bed. EFHM and TOCO applied, VS taken. NADIA FREEMAN oriented to bed controls, call light, TV, heat, and A/C controls.
[2019-05-02 17:30] VITALS: BP 136/77
[2019-05-02 17:36] LABS: BILIRUBIN,URINE NEGATIVE (NEGATIVE); CLARITY,URINE CLEAR; COLOR,URINE YELLOW; GLUCOSE, URINE (UA) NEGATIVE (NEGATIVE); KETONES,URINE NEGATIVE (NEGATIVE); LEUKOCYTE ESTERASE ,URINE NEGATIVE (NEGATIVE); NITRITE,URINE NEGATIVE (NEGATIVE); PROTEIN,URINE NEGATIVE (NEGATIVE)
[2019-05-02 17:53] LABS: BACTERIA,URINE NEGATIVE /HPF; WBC,URINE RARE /HPF
--- NOTE | 2019-05-02 18:12 | NUR ---
Dr. Burks notified of patients arrival, complaints, exam, and UA. New orders received.
--- NOTE | 2019-05-02 18:24 | NUR ---
Discharge instructions and medications reviewed with patient both written and verbally. Patient verbalizes understanding and questions answered.
--- NOTE | 2019-05-02 18:25 | NUR ---
Patient discharged at this time and ambulated from the unit accompanied by family. No signs or symptoms of distress noted.
[2019-05-02] MEDS ORDERED: FLU QUADRIvalent (5+ YOA) 2019-2020 (AFLURIA) 0.5 ML IM ONE (19:00)
--- NOTE | 2019-05-03 08:54 | Physician Query-Final Dx ---
JOSE LUJAN 05/03/19 0854: Clinic Account Progress/Dx Physician Query: Please give diagnosis Please include # weeks gestation Date of Service May 02, 2019 at 16:55 JAMES VALDES DO 05/08/19 0701: Clinic Account Progress/Dx DIAGNOSIS: Diagnosis Intrauterine at 36 weeks 2. Contractions JOSE LUJAN May 03, 2019 08:54 JAMES VALDES DO May 08, 2019 07:01
== END 2019-05-02 18:25 | disposition home or self-care (01) ==
LOC: WSo 16:55 → LDRP 16:57 → WSo 18:25
PROVIDERS: ATTEND Obstetrics & Gynecology
DX: O62.9 Abnormality of forces of labor, unspecified (principal); Z3A.36 36 weeks gestation of pregnancy
CPT/HCPCS: 81000; 87088; 99213

== ENCOUNTER 2019-05-15 23:59 | Inpatient (IN) | payer OTHER ==
[~2019-05-15] VITALS: Ht 154.9 cm; Wt 85.1 kg
[2019-05-16] VITALS (72 sets, daily range): BP systolic 106–157; BP diastolic 53–99
--- NOTE | 2019-05-16 00:05 | NUR ---
NADIA FREEMAN presented to unit via AMBULATION from ED, accompanied by FAMILY, with c/o CONTRACTIONS. NADIA FREEMAN weighed, gowned, voided, and to bed. EFHM and TOCO applied, VS taken. NADIA FREEMAN oriented to bed controls, call light, TV, heat, and A/C controls.
[2019-05-16 00:32] LABS: BILIRUBIN,URINE NEGATIVE (NEGATIVE); CLARITY,URINE CLEAR; COLOR,URINE YELLOW; GLUCOSE, URINE (UA) NEGATIVE (NEGATIVE); KETONES,URINE NEGATIVE (NEGATIVE); LEUKOCYTE ESTERASE ,URINE NEGATIVE (NEGATIVE); NITRITE,URINE NEGATIVE (NEGATIVE); PH,URINE 7.5 (5-9); PROTEIN,URINE 2+ (NEGATIVE)
[2019-05-16 00:43] LABS: BACTERIA,URINE MODERATE /HPF
[2019-05-16] MEDS ORDERED: D5 LR IV SOLUTION 1,000 ML IV ONE (02:24)
[2019-05-16] MEDS ORDERED: LACTATED RINGERS 1,000 ML IV ONE ×2 (02:30→11:38)
[2019-05-16] MEDS: D5 LR IV SOLUTION 1,000 ML IV SCH ×3 (02:50→18:52)
[2019-05-16] MEDS ORDERED: BUTORPHANOL INJ 2 MG/ML (STADOL) VIAL IV ONE (04:30)
--- NOTE | 2019-05-16 08:36 | Physician Query-Final Dx ---
JOSE LUJAN 05/16/19 0836: Clinic Account Progress/Dx Physician Query: Please give diagnosis Please include # weeks gestation Date of Service May 15, 2019 at 23:59 JAMES VALDES DO 05/16/192128: Clinic Account Progress/Dx DIAGNOSIS: Diagnosis Intrauterine at 38 weeks 2. Pelvic Pain 3. Contractions JOSE LUJAN May 16, 2019 08:36 JAMES VALDES DO May 16, 2019 21:29
[2019-05-16] MEDS ORDERED: ONDANSETRON 4 MG/2 ML (SDV) Z0FRAN ONE (09:54)
[2019-05-16] MEDS: ONDANSETRON 4 MG/2 ML (SDV) Z0FRAN IVP PRN ×2 (10:00→21:48)
[2019-05-16] MEDS: EPIDURAL (SUFENTA 0.6MCG/ML BUPIVA 0.125%) 100 ML BAG EPI PRN ×2 (10:30→20:02)
[2019-05-16] MEDS ORDERED: MINERAL OIL CONCENTRATE 99.9% 15 ML UDC TOP PRN (10:30)
[2019-05-16 10:31] LABS: BASOPHILS % (AUTO) 0 % (0-10); EOSINOPHILS # (AUTO) 0.1 10^3/uL (0.0-0.3); EOSINOPHILS % (AUTO) 1 % (0-10); HEMATOCRIT 33 % (35-52); HEMOGLOBIN 10.6 G/DL (11.5-16.0); LYMPHOCYTES # (AUTO) 3.8 X 10^3 (1.0-4.0); LYMPHOCYTES % (AUTO) 28 % (12-44); MEAN CORPUSCULAR HEMOGLOBIN 27 PG (25-34); MEAN CORPUSCULAR HGB CONC 32 G/DL (32-36); MEAN CORPUSCULAR VOLUME 84 FL (80-99); MEAN PLATELET VOLUME 13.6 FL (7.4-10.4); MONOCYTES # (AUTO) 0.7 X 10^3 (0.0-1.0); MONOCYTES % (AUTO) 6 % (0-12); NEUTROPHILS # (AUTO) 8.7 X 10^3 (1.8-7.8); NEUTROPHILS % (AUTO) 65 % (42-75); PLATELET COUNT 187 10^3/uL (130-400); RED CELL DISTRIBUTION WIDTH 15.1 % (10.0-14.5); WHITE BLOOD COUNT 13.4 10^3/uL (4.3-11.0)
[2019-05-16] MEDS ORDERED: SUFENTA 0.6MCG/ML BUPIVA 0.125 100 ML ONE (10:31)
[2019-05-16] MEDS ORDERED: fentaNYL INJECTION 100 MCG/2 ML AMP ONE (10:46)
[2019-05-16] MEDS ORDERED: NALOXONE 0.4 MG/ML 1 ML (NARCAN) VIAL IV PRN ×2 (11:45)
[2019-05-16] MEDS ORDERED: ONDANSETRON 4 MG/2 ML (SDV) Z0FRAN IV PRN (11:45)
[2019-05-16] MEDS ORDERED: METOCLOPRAMIDE INJ 10 MG/2 ML (REGLAN) IV PRN (11:45)
[2019-05-16] MEDS ORDERED: diphenhydrAMINE 50 MG/ML INJ (BENADRYL) IV PRN (11:45)
[2019-05-16] MEDS ORDERED: OXYTOCIN PRE-MIX DRIP 500 ML IV ONE (11:53)
[2019-05-16] MEDS ORDERED: FLU QUADRIvalent (5+ YOA) 2019-2020 (AFLURIA) 0.5 ML IM ONE (12:00)
[2019-05-16] MEDS: OXYTOCIN PRE-MIX DRIP 500 ML IV SCH (12:13)
[2019-05-16] MEDS: CATHETER FLUSH 10 ML SYR IV SCH (20:04)
--- NOTE | 2019-05-16 21:44 | History & Physical-OB/GYN ---
History of Present Illness History of Present Illness Reason for visit/HPI Ms. Guevara, , at 38 3/7 weeks presented to Labor & Delivery for the onset of contractions. She was allowed to ambulate at which time she changed her cervix. Date of Admission May 16, 2019 at 10:22 Date Seen by a Provider: May 16, 2019 Time Seen by a Provider: 06:50 I consulted on this patient on 05/16/19 0650 Attending Physician Anand Burks DO Admitting Physician Anand Burks DO Consult Allergies and Home Medications Allergies Coded Allergies: Sulfa (Sulfonamide Antibiotics) (Verified Allergy, Unknown, 07/13/18) Home Medications Vit No.124/Iron/FA 1 Each Tablet, 1 EACH PO DAILY, (Reported) Patient Home Medication List Home Medication List Reviewed: Yes Past Pcnrqfr-Ufamza-Mpeyex Hx Patient Social History Marrital Status: single Number of Children: 0 Number of living children: 0 Employed/Student: employed Alcohol Use: Denies Use Recreational Drug Use: No Smoking Status: Never a Smoker 2nd Hand Smoke Exposure: No Recent Foreign Travel: No Contact w/other who traveled: No Recent Hopitalizations: No Recent Infectious Disease Expo: No Immunizations Up To Date Pediatric: Yes Seasonal Allergies Seasonal Allergies: Yes (hayfever) Surgeries Yes Abdominal, Gallbladder, Orthopedic Respiratory No Cardiovascular No Neurological No Reproductive System Expected Date of Delivery: May 27, 2019 Hx : 1 Hx Para: 0 Hx Total # of Abortions (Spona: 0 Sexually Transmitted Disease: No HIV/AIDS: No Genitourinary No Gastrointestinal No Musculoskeletal No Endocrine History of Endocrine Disorders: No HEENT History of HEENT Disorders: No Cancer No Psychosocial History of Psychiatric Problem: No Integumentary History of Skin or Integumenta: No Blood Transfusions History of Blood Disorders: No Adverse Reaction to a Blood Tr: No (n/a) Family Medical History Family Hx: Hypertension 19 FATHER Review of Systems Constitutional: see HPI Physical Exam Physical Exam Vital Signs Vital Signs Date Time Temp Pulse Resp B/P (MAP) Pulse Ox O2 Delivery O2 Flow Rate FiO2 05/16/19 21:15 37.1 81 18 156/93 (114) 05/16/19 21:00 87 18 137/83 (101) 05/16/19 20:55 68 124/73 (90) 05/16/19 20:50 74 125/74 (91) 05/16/19 20:45 76 18 126/74 (91) 05/16/19 20:30 76 18 124/74 (91) 05/16/19 20:15 71 18 112/57 (75) 05/16/19 20:00 81 18 128/63 (84) 05/16/19 19:45 75 18 127/63 (84) 05/16/19 19:30 72 18 123/72 (89) 05/16/19 19:15 77 18 143/70 (94) 05/16/19 18:55 36.9 83 18 121/77 (92) Room Air 05/16/19 18:40 74 18 119/74 (89) Room Air 05/16/19 18:25 67 18 132/67 (88) Room Air 05/16/19 18:10 96 18 132/82 (99) Room Air 05/16/19 17:55 69 18 113/57 (75) Room Air 05/16/19 17:40 70 18 122/68 (86) Room Air 05/16/19 17:30 67 18 134/78 (96) Room Air 05/16/19 17:15 74 18 122/67 (85) Room Air 05/16/19 16:55 65 18 115/57 (76) Room Air 05/16/19 16:45 37.1 86 18 150/67 (94) Room Air 05/16/19 16:25 75 18 120/73 (89) Room Air 05/16/19 16:10 37.2 78 18 116/61 (79) Room Air 05/16/19 15:55 71 18 112/57 (75) Room Air 05/16/19 15:40 74 18 106/53 (70) Room Air 05/16/19 15:25 37.1 05/16/19 15:10 67 18 108/60 (76) Room Air 05/16/19 14:55 69 18 117/67 (84) Room Air 05/16/19 14:40 71 18 124/74 (91) Room Air 05/16/19 14:26 78 18 119/74 (89) Room Air 05/16/19 14:10 66 18 116/74 (88) Room Air 05/16/19 13:55 62 18 123/73 (90) 98 Room Air 05/16/19 13:40 72 18 120/65 (83) 96 Room Air 05/16/19 13:25 70 18 120/65 (83) 99 Room Air 05/16/19 13:10 75 18 124/69 (87) 100 Room Air 05/16/19 12:55 36.8 87 18 129/88 (102) Room Air 05/16/19 12:40 77 18 134/82 (99) 99 Room Air 05/16/19 12:25 77 18 135/83 (100) Room Air 05/16/19 12:10 36.6 92 18 136/74 (94) 95 Room Air 05/16/19 12:05 81 18 138/83 (101) 98 Room Air 05/16/19 12:00 80 18 137/83 (101) 97 Room Air 05/16/19 11:55 116 18 139/84 (102) 99 Room Air 05/16/19 11:49 76 18 129/69 (89) Room Air 05/16/19 11:46 95 18 127/80 (96) 99 Room Air 05/16/19 11:43 18 133/81 (98) 99 Room Air 05/16/19 11:40 71 18 131/75 (93) Room Air 05/16/19 11:37 95 18 132/79 (96) 99 Room Air 05/16/19 11:33 67 18 131/78 (95) 98 Room Air 05/16/19 11:29 36.7 80 18 143/76 (98) 98 Room Air 05/16/19 11:24 76 18 157/82 (107) 98 Room Air 05/16/19 11:18 91 18 137/99 (112) Room Air 05/16/19 11:15 78 18 138/85 (102) Room Air 05/16/19 11:10 80 18 146/95 (112) 93 Room Air 05/16/19 11:05 81 18 132/87 (102) 98 Room Air 05/16/19 10:55 90 18 151/86 (107) 100 Room Air 05/16/19 09:35 84 18 140/89 (106) Room Air 05/16/19 08:45 36.7 73 18 128/84 (99) Room Air 05/16/19 03:57 66 18 140/74 (96) Room Air 05/16/19 01:20 18 149/90 (109) Room Air 05/16/19 01:04 58 18 135/91 (106) Room Air 05/16/19 00:48 61 18 132/84 (100) Room Air 05/16/19 00:35 61 18 139/81 (100) Room Air 05/16/19 00:17 36.8 68 18 98 Room Air I & O 05/16/19 07:00 Intake Total 1000 ml Balance 1000 ml Capillary Refill : Less Than 3 Seconds Labs Laboratory Tests 05/16/19 00:05: Urine Color YELLOW, Urine Clarity CLEAR, Urine pH 7.5, Urine Specific [place] 1.025H, Urine Protein 2+H, Urine Glucose (UA) NEGATIVE, Urine Ketones NEGATIVE, Urine Nitrite NEGATIVE, Urine Bilirubin NEGATIVE, Urine Urobilinogen 0.2, Urine Leukocyte Esterase NEGATIVE, Urine RBC (Auto) NEGATIVE, Urine RBC NONE, Urine WBC 2-5, Urine Squamous Epithelial Cells 2-5, Urine Crystals NONE, Urine Bacteria MODERATEH, Urine Casts NONE, Urine Mucus SMALLH, Urine Culture Indicated YES 05/16/19 02:45: White Blood Count 13.4H, Red Blood Count 3.98L, Hemoglobin 10.6L, Hematocrit 33L , Mean Corpuscular Volume 84, Mean Corpuscular Hemoglobin 27, Mean Corpuscular Hemoglobin Concent 32, Red Cell Distribution Width 15.1H, Platelet Count 187, Mean Platelet Volume 13.6H, Neutrophils (%) (Auto) 65, Lymphocytes (%) (Auto) 28, Monocytes (%) (Auto) 6, Eosinophils (%) (Auto) 1, Basophils (%) (Auto) 0, Neutrophils # (Auto) 8.7H, Lymphocytes # (Auto) 3.8, Monocytes # (Auto) 0.7, Eosinophils # (Auto) 0.1, Basophils # (Auto) 0.0 Microbiology 05/16/19 Urine Culture - Preliminary, Resulted Culture In Progress General Appearance: No Apparent Distress, WD/WN Respiratory: Chest Non Tender, Lungs Clear, Normal Breath Sounds Cardiovascular: Regular Rate, Rhythm, No Murmur Abdominal: normal bowel sounds, non tender Labia: WNL Vagina: WNL Cervix: WNL Cervix OS: open (3 cm) Uterus: Enlarged (Gravid) Extremity: Normal Inspection, No Calf Tenderness Assessment/Plan Assessment and Plan Assessment: Intrauterine at 38 3/7 weeks--onset of Labor Plan: Augment labor. Pain management per patient request. AROM. I expect a normal spontaneous vaginal delivery Admission Diagnosis Admission Status: Inpatient Order (span 2 midnights) Reason for Inpatient Admission: Onset of labor Clinical Quality Measures DVT/VTE Risk/Contraindication: Risk Factor Score Per Nursin RFS Level Per Nursing on Admit: 2=Moderate ANAND BURKS DO May 16, 2019 21:44
[2019-05-17] VITALS (28 sets, daily range): BP systolic 115–151; BP diastolic 57–98
[2019-05-17] MEDS ORDERED: LIDOCAINE 1% INJ 20 ML 20 ML VIAL ONE (01:09)
[2019-05-17] MEDS: OXYTOCIN PRE-MIX DRIP 500 ML IV SCH (02:15)
[2019-05-17] MEDS ORDERED: OXYTOCIN PRE-MIX DRIP 500 ML IV SCH (02:23)
[2019-05-17] MEDS ORDERED: TETANUS,DIPTH,PERTUSS P/F (BOOSTRIX) 0.5 ML VIAL IM ONE (02:30)
[2019-05-17] MEDS ORDERED: MEASLES,MUMPS,RUBELLA 1 EA INJ SQ ONE (02:30)
[2019-05-17] MEDS ORDERED: WITCH HAZEL(TUCKS) 40 EA JAR TOP PRN (02:30)
[2019-05-17] MEDS ORDERED: BENZOCAINE/MENTHOL (DERMOPLAST) 60 ML CAN TP PRN (02:30)
[2019-05-17] MEDS ORDERED: DIBUCAINE (NUPERCAINAL) 1% OINT 30 GM TOP PRN (02:30)
--- NOTE | 2019-05-17 02:31 | OB Labor & Delivery Record ---
Vag Delivery Note Vag Delivery Note Date of Delivery: 05/17/19 Preoperative Diagnosis: China Guevara is a (23 /Para 1 / 0, Gestational Age (wks)38 4/7 weeks with [the onset of labor] Postoperative Diagnosis: Same Surgeon: JAMES VALDES Hat Finisher: [None] Anesthesia: [Epidural] Delivery Type: [Normal Spontaneous Vaginal Delivery] Findings: [] Viable [Female] infant, apgars [8, 9], weight [6 lbs 9 oz] Lacerations: Midline episiotomy without extension Intact placenta with 3 vessel cord. No nuchal cord, body cord or shoulder dystocia Estimated Blood Loss: [300] ml Complications: None Condition: Stable Description of Procedure: The patient is a 23 year old female who presented [with the onset of co ntractions]. She was admitted and informed consent was obtained. Her labor course was unremarkable. She progressed to complete dilatation and began to push. She was then set up for delivery. The 's head was delivered atraumatically in the [GARY] position. Immediaely orally and nasally suctioned while the head was held below he perineum. The shoulders and remainder of the 's body were then delivered without difficulty. The cord was doubly clamped and cut and the was handed off to the pediatric staff where NRP protocol was followed. Cord blood was obtained. An intact placenta with 3-vessel cord delivered via Rishi and there was found to be minimal bleeding.~ Vigorous fundal massage was performed and the fundus was found to be firm. IV oxytocin was given. Examination of the vagina and perineum revealed [just the midline episiotomy] laceration repaired in the usual fashion with 2-0 Vicryl and 3-0 vicryl suture. Following the repair, sponge, instrument and needle counts were correct. Mom and baby were both in stable condition in the labor suite. Vitals - Labs Vital Signs - I&O Vital Signs Date Time Temp Pulse Resp B/P (MAP) Pulse Ox O2 Delivery O2 Flow Rate FiO2 05/17/19 01:05 76 134/86 (102) 05/17/19 01:00 74 18 134/84 (101) 05/17/19 00:55 75 140/84 (102) 05/17/19 00:50 104 151/98 (115) 05/17/19 00:45 84 18 137/79 (98) 05/17/19 00:30 85 18 129/83 (98) 05/17/19 00:15 98 18 118/67 (84) 05/17/19 00:00 86 18 115/70 (85) 05/16/19 23:45 69 18 131/72 (91) 05/16/19 23:30 83 18 126/82 (97) 05/16/19 23:15 79 18 128/80 (96) 05/16/19 23:00 69 18 134/83 (100) 05/16/19 22:45 72 18 136/76 (96) 05/16/19 22:30 76 18 141/80 (100) 05/16/19 22:15 73 18 132/84 (100) 05/16/19 22:00 103 18 145/68 (93) 05/16/19 21:45 75 18 135/76 (95) 05/16/19 21:30 82 18 129/84 (99) 05/16/19 21:15 37.1 81 18 156/93 (114) 05/16/19 21:00 87 18 137/83 (101) 05/16/19 20:55 68 124/73 (90) 05/16/19 20:50 74 125/74 (91) 05/16/19 20:45 76 18 126/74 (91) 05/16/19 20:30 76 18 124/74 (91) 05/16/19 20:15 71 18 112/57 (75) 05/16/19 20:00 81 18 128/63 (84) 05/16/19 19:45 75 18 127/63 (84) 05/16/19 19:30 72 18 123/72 (89) 05/16/19 19:15 77 18 143/70 (94) 05/16/19 18:55 36.9 83 18 121/77 (92) Room Air 05/16/19 18:40 74 18 119/74 (89) Room Air 05/16/19 18:25 67 18 132/67 (88) Room Air 05/16/19 18:10 96 18 132/82 (99) Room Air 05/16/19 17:55 69 18 113/57 (75) Room Air 05/16/19 17:40 70 18 122/68 (86) Room Air 05/16/19 17:30 67 18 134/78 (96) Room Air 05/16/19 17:15 74 18 122/67 (85) Room Air 05/16/19 16:55 65 18 115/57 (76) Room Air 05/16/19 16:45 37.1 86 18 150/67 (94) Room Air 05/16/19 16:25 75 18 120/73 (89) Room Air 05/16/19 16:10 37.2 78 18 116/61 (79) Room Air 05/16/19 15:55 71 18 112/57 (75) Room Air 05/16/19 15:40 74 18 106/53 (70) Room Air 05/16/19 15:25 37.1 05/16/19 15:10 67 18 108/60 (76) Room Air 05/16/19 14:55 69 18 117/67 (84) Room Air 05/16/19 14:40 71 18 124/74 (91) Room Air 05/16/19 14:26 78 18 119/74 (89) Room Air 05/16/19 14:10 66 18 116/74 (88) Room Air 05/16/19 13:55 62 18 123/73 (90) 98 Room Air 05/16/19 13:40 72 18 120/65 (83) 96 Room Air 05/16/19 13:25 70 18 120/65 (83) 99 Room Air 05/16/19 13:10 75 18 124/69 (87) 100 Room Air 05/16/19 12:55 36.8 87 18 129/88 (102) Room Air 05/16/19 12:40 77 18 134/82 (99) 99 Room Air 05/16/19 12:25 77 18 135/83 (100) Room Air 05/16/19 12:10 36.6 92 18 136/74 (94) 95 Room Air 05/16/19 12:05 81 18 138/83 (101) 98 Room Air 05/16/19 12:00 80 18 137/83 (101) 97 Room Air 05/16/19 11:55 116 18 139/84 (102) 99 Room Air 05/16/19 11:49 76 18 129/69 (89) Room Air 05/16/19 11:46 95 18 127/80 (96) 99 Room Air 05/16/19 11:43 18 133/81 (98) 99 Room Air 05/16/19 11:40 71 18 131/75 (93) Room Air 05/16/19 11:37 95 18 132/79 (96) 99 Room Air 05/16/19 11:33 67 18 131/78 (95) 98 Room Air 05/16/19 11:29 36.7 80 18 143/76 (98) 98 Room Air 05/16/19 11:24 76 18 157/82 (107) 98 Room Air 05/16/19 11:18 91 18 137/99 (112) Room Air 05/16/19 11:15 78 18 138/85 (102) Room Air 05/16/19 11:10 80 18 146/95 (112) 93 Room Air 05/16/19 11:05 81 18 132/87 (102) 98 Room Air 05/16/19 10:55 90 18 151/86 (107) 100 Room Air 05/16/19 09:35 84 18 140/89 (106) Room Air 05/16/19 08:45 36.7 73 18 128/84 (99) Room Air 05/16/19 03:57 66 18 140/74 (96) Room Air I & O 05/17/19 07:00 Intake Total 3000 ml Balance 3000 ml Labs Laboratory Tests 05/16/19 02:45: White Blood Count 13.4H, Red Blood Count 3.98L, Hemoglobin 10.6L, Hematocrit 33L , Mean Corpuscular Volume 84, Mean Corpuscular Hemoglobin 27, Mean Corpuscular Hemoglobin Concent 32, Red Cell Distribution Width 15.1H, Platelet Count 187, Mean Platelet Volume 13.6H, Neutrophils (%) (Auto) 65, Lymphocytes (%) (Auto) 28, Monocytes (%) (Auto) 6, Eosinophils (%) (Auto) 1, Basophils (%) (Auto) 0, Neutrophils # (Auto) 8.7H, Lymphocytes # (Auto) 3.8, Monocytes # (Auto) 0.7, Eosinophils # (Auto) 0.1, Basophils # (Auto) 0.0 Microbiology 05/16/19 Urine Culture - Preliminary, Resulted Culture In Progress JAMES VALDES DO May 17, 2019 02:31
[2019-05-17] MEDS: IBUPROFEN 800 MG (MOTRIN) TAB PO SCH ×3 (02:39→17:48)
[2019-05-17] MEDS: CATHETER FLUSH 10 ML SYR IV SCH (03:14)
[2019-05-17] MEDS: ACETAMINOPHEN 500 MG TAB (TYLENOL) PO SCH ×4 (04:02→23:29)
[2019-05-17] MEDS ORDERED: CATHETER FLUSH 10 ML SYR IV SCH (06:00)
--- NOTE | 2019-05-17 07:44 | Progress Note ---
Standard Progress Note Progress Notes/Assess & Plan Date Seen by a Provider: May 17, 2019 Time Seen by a Provider: 07:30 Progress/Assessment & Plan Subjective: Ms. Guevara is PPD#0 from a . She states that her bleeding has slowed and her pain is well controlled. Objective: Vital signs are stable Heart: Regular rate and rhythm without appreciable murmur Lungs: Clear to auscultation with good respiratory effort Abdomen: Good bowel sound, no rebound or guarding, fundus 8 cm below umbilicus Extremities: No cyanosis or clubbing, minimal lower extremity edema Assessment: PPD#0 Plan: care and pain management. Comfort care measures. JAMES VALDES DO May 17, 2019 07:44
--- NOTE | 2019-05-17 08:00 | Anesthesia-Regional Post-Op ---
Regional Patient Condition Mental Status: Alert, Oriented x3 Circulation: Same as Pre-Op Headache: Absent Sensation: Full Recovery Motor Block: Absent Post Op Complications Complications None Follow Up Care/Instructions Patient Instructions None needed. Anesthesia/Patient Condition Patient is doing well, no complaints, stable vital signs, no apparent adverse anesthesia problems. No complications reported per nursing. JEAN CARLOS SUAREZ CRNA May 17, 2019 08:00
--- NOTE | 2019-05-17 09:00 | NUR ---
A.M. ASSESSMENT COMPLETED. VSS.
[2019-05-17] MEDS: PRENATAL VITAMIN 1 EA TAB PO SCH (09:43)
[2019-05-17] MEDS: DOCUSATE SODIUM 100 MG (COLACE) CAP PO SCH ×2 (09:44→20:48)
--- NOTE | 2019-05-17 09:45 | NUR ---
NUPERCAINAL OINTMENT GIVEN, ICE PACK GIVEN. FAMILY AT BEDSIDE.
--- NOTE | 2019-05-17 11:00 | NUR ---
PT STATES BABY WAS TO HAVE HER BATH AT 0800. EXPLAINED UNABLE TO DO THAT R/T TIMING OF OTHER DELIVERIES.
--- NOTE | 2019-05-17 12:00 | NUR ---
CONTINUES TO CARE FOR IN ROOM. GOOD INTERACTION NOTED. FAMILY AT BEDSIDE.
--- NOTE | 2019-05-17 15:00 | NUR ---
CARING FOR INFANT IN ROOM. WELL. PT'S MOM HAS BEEN HERE MOST OF THE DAY.
--- NOTE | 2019-05-17 17:48 | NUR ---
LOTS OF VISITORS AT BEDSIDE. OXYIR 5 MG P.O. FOR C/O SORE BOTTOM. ICE PACK GIVEN.
--- NOTE | 2019-05-17 19:13 | NUR ---
FLU VACCINE, MMR, AND TDAP GIVEN.
[2019-05-18] MEDS: ACETAMINOPHEN 500 MG TAB (TYLENOL) PO SCH ×2 (05:24→11:53)
[2019-05-18] MEDS: IBUPROFEN 800 MG (MOTRIN) TAB PO SCH (05:24)
[2019-05-18 05:26] VITALS: BP 119/64
[2019-05-18 06:31] LABS: BASOPHILS % (AUTO) 0 % (0-10); EOSINOPHILS # (AUTO) 0.2 10^3/uL (0.0-0.3); EOSINOPHILS % (AUTO) 2 % (0-10); HEMATOCRIT 25 % (35-52); HEMOGLOBIN 7.8 G/DL (11.5-16.0); LYMPHOCYTES # (AUTO) 3.2 X 10^3 (1.0-4.0); LYMPHOCYTES % (AUTO) 31 % (12-44); MEAN CORPUSCULAR HEMOGLOBIN 27 PG (25-34); MEAN CORPUSCULAR HGB CONC 32 G/DL (32-36); MEAN CORPUSCULAR VOLUME 85 FL (80-99); MEAN PLATELET VOLUME 13.1 FL (7.4-10.4); MONOCYTES # (AUTO) 0.7 X 10^3 (0.0-1.0); MONOCYTES % (AUTO) 7 % (0-12); NEUTROPHILS # (AUTO) 6.3 X 10^3 (1.8-7.8); NEUTROPHILS % (AUTO) 60 % (42-75); PLATELET COUNT 147 10^3/uL (130-400); WHITE BLOOD COUNT 10.4 10^3/uL (4.3-11.0)
[2019-05-18 07:35] VITALS: BP 120/82
[2019-05-18] MEDS: DOCUSATE SODIUM 100 MG (COLACE) CAP PO SCH (07:42)
[2019-05-18] MEDS: PRENATAL VITAMIN 1 EA TAB PO SCH (07:42)
[2019-05-18] MEDS ORDERED: ACET-93 PO (09:27)
[2019-05-18] MEDS ORDERED: OXC5T PO (09:27)
[2019-05-18] MEDS ORDERED: IBUP-1780 PO (09:27)
[2019-05-18] MEDS ORDERED: DCS100C PO (09:27)
--- NOTE | 2019-05-18 09:33 | Discharge Summary ---
Diagnosis/Chief Complaint Date of Admission May 16, 2019 at 10:22 Date of Discharge May 18, 2019 Discharge Date: May 18, 2019 Discharge Time: 09:30 Admission Diagnosis Admission Diagnosis Intrauterine at 38 3/7 weeks 2. Discharge Diagnosis Intrauterine at 38 3/7 weeks --delivered Reason Hospital Visit Ms. Guevara, , at 38 3/7 weeks presented to Labor & Delivery for the onset of contractions. She was allowed to ambulate at which time she changed her cervix. Discharge Summary Hospital Course Was the Problem List Reviewed?: Yes Hospital Course Ms. Guevara presented to the hospital with contractions. Her labor was augmented with Pitocin and she had AROM. She progressed to complete then delivered a healthy viable female without complications. The remainder of her hospitalization was unremarkable. Her vital signs remained stable throughout her hospitalization I will discharge her to home with instructions, prescriptions and a follow up appointment. Labs Laboratory Tests 05/16/19 00:05: Urine Specific [place] 1.025H, Urine Protein 2+H, Urine Bacteria MODERATEH, Urine Mucus SMALLH 05/16/19 02:45: White Blood Count 13.4H, Red Blood Count 3.98L, Hemoglobin 10.6L, Hematocrit 33L , Red Cell Distribution Width 15.1H, Mean Platelet Volume 13.6H, Neutrophils # (Auto) 8.7H 05/18/19 05:52: Red Blood Count 2.91L, Hemoglobin 7.8#L, Hematocrit 25L, Red Cell Distribution Width 15.0H, Mean Platelet Volume 13.1H Procedures None. Discharge Physical Examination Allergies: Coded Allergies: Sulfa (Sulfonamide Antibiotics) (Verified Allergy, Unknown, 07/13/18) Vitals & I&Os Vital Signs Date Time Temp Pulse Resp B/P (MAP) Pulse Ox O2 Delivery O2 Flow Rate FiO2 05/18/19 07:35 36.7 72 16 120/82 (95) 97 Room Air General Appearance: Alert, Oriented X3, Cooperative HEENT: Atraumatic Respiratory: Clear to Auscultation, Normal Air Movement Cardiovascular: Regular Rate Abdominal: Normal Bowel Sounds, No Tenderness Extremities: No Clubbing, No Cyanosis Skin: No Rashes Neuro: Normal Gait, Normal Speech Discharge Home Medications Reviewed and agree with Discharge Medication list on patient's Discharge Instruction sheet Instructions to Patient/Family Please see electronic discharge instructions given to patient. Clinical Quality Measures DVT/VTE Risk/Contraindication: Risk Factor Score Per Nursin RFS Level Per Nursing on Admit: 2=Moderate JAMES VALDES DO May 18, 2019 09:33
--- NOTE | 2019-05-18 10:55 | NUR ---
Report received from MARY KAY Arriaga. care assumed.
--- NOTE | 2019-05-18 11:53 | NUR ---
Dismissal instructions given, verbalizes understanding. reviewed follow up appointment and Rx's. signature page signed, placed on chart.
--- OUTSIDE RECORDS SUMMARY | 2019-05-18 12:17 | XMS REPORT | Continuity of Care Document ---
Author Organization Unknown Address Unknown Phone Unavailable Allergies Active Description Code Type Severity Reaction Onset Reported/Identified Relationship to Patient Clinical Status Yes Sulfa (Sulfonamide Antibiotics) [id number] Drug Allergy Unknown N/A 019 Medications There is no data. Problems Date Dx Coded Attending Type Code Diagnosis Diagnosed By 07/13/2018 WYATT DE LA TORRE DO, Ot N39.0 URINARY TRACT INFECTION, SITE NOT SPECIF 07/13/2018 WYATT DE LA TORRE DO, Ot N83.201 UNSPECIFIED OVARIAN CYST, RIGHT SIDE 07/13/2018 WYATT DE LA TORRE DO, Ot N83.202 UNSPECIFIED OVARIAN CYST, LEFT SIDE 07/13/2018 WYATT DE LA TORRE DO Ot R10.31 RIGHT LOWER QUADRANT PAIN 07/13/2018 WYATT DE LA TORRE DO Ot Z88.2 ALLERGY STATUS TO SULFONAMIDES STATUS 07/15/2018 WYATT DE LA TORRE DO, Ot N39.0 URINARY TRACT INFECTION, SITE NOT SPECIF 07/15/2018 WYATT DE LA TORRE DO Ot N83.201 UNSPECIFIED OVARIAN CYST, RIGHT SIDE 07/15/2018 WYATT DE LA TORRE DO Ot N83.202 UNSPECIFIED OVARIAN CYST, LEFT SIDE 07/15/2018 WYATT DE LA TORRE DO Ot R10.31 RIGHT LOWER QUADRANT PAIN 07/15/2018 WYATT DE LA TORRE DO Ot Z88.2 ALLERGY STATUS TO SULFONAMIDES STATUS 09/19/2018 SARAH SANCHEZ MD Ot M25.542 PAIN IN JOINTS OF LEFT HAND 09/19/2018 SARAH SANCHEZ MD Ot S60.222A CONTUSION OF LEFT HAND, INITIAL ENCOUNTE 09/19/2018 SARAH SANCHEZ MD Ot X58.XXXA EXPOSURE TO OTHER SPECIFIED FACTORS, INI 09/19/2018 SARAH SANCHEZ MD Ot Z88. 2 ALLERGY STATUS TO SULFONAMIDES STATUS 09/23/2018 SARAH SANCHEZ MD Ot M25.542 PAIN IN JOINTS OF LEFT HAND 09/23/2018 SARAH SANCHEZ MD Ot S60.222A CONTUSION OF LEFT HAND, INITIAL ENCOUNTE 09/23/2018 SARAH SANCHEZ MD Ot X58.XXXA EXPOSURE TO OTHER SPECIFIED FACTORS, INI 09/23/2018 SARAH SANCHEZ MD Ot Z88. 2 ALLERGY STATUS TO SULFONAMIDES STATUS 09/25/2018 SARAH SANCHEZ MD Ot M25.542 PAIN IN JOINTS OF LEFT HAND 09/25/2018 SARAH SANCHEZ MD Ot S60.222A CONTUSION OF LEFT HAND, INITIAL ENCOUNTE 09/25/2018 SARAH SANCEHZ MD Ot X58.XXXA EXPOSURE TO OTHER SPECIFIED FACTORS, INI 09/25/2018 SARAH SANCHEZ MD Ot Z88. 2 ALLERGY STATUS TO SULFONAMIDES STATUS 01/07/2019 SARAH SANCHEZ MD Ot O20. 9 HEMORRHAGE IN EARLY , UNSPECIFI 01/07/2019 SARAH SANCHEZ MD Ot Z3A. 20 20 WEEKS GESTATION OF 01/07/2019 SARAH SANCHEZ MD Ot Z88. 2 ALLERGY STATUS TO SULFONAMIDES STATUS 01/12/2019 SARAH SANHCEZ MD Ot O20. 9 HEMORRHAGE IN EARLY , UNSPECIFI 01/12/2019 SARAH SANCHEZ MD Ot Z3A. 20 20 WEEKS GESTATION OF 01/12/2019 SARAH SANCHEZ MD Ot Z88. 2 ALLERGY STATUS TO SULFONAMIDES STATUS 02/20/2019 SEALS DO, JAMES E Ot E86.0 DEHYDRATION 02/20/2019 SEALS DO, JAMES E Ot O23.4 2 UNSP INFCT OF URINARY TRACT IN 02/20/2019 SEALS DO, JAMES E Ot O26.8 92 OTH RELATED CONDITIONS, SECOND 02/20/2019 SEALS DO, JAMES E Ot O47.0 2 FALSE LABOR BEFORE 37 COMPLETED WEEKS OF 02/20/2019 SEALS DO, JAMES E Ot Z3A.2 7 27 WEEKS GESTATION OF 02/21/2019 SEALS DO, JAMES E Ot E86.0 DEHYDRATION 02/21/2019 SEALS DO, JAMES E Ot O23.4 2 UNSP INFCT OF URINARY TRACT IN 02/21/2019 SEALS DO, JAMES E Ot O26.8 92 OTH RELATED CONDITIONS, SECOND 02/21/2019 SEALS DO, JAMES E Ot O47.0 2 FALSE LABOR BEFORE 37 COMPLETED WEEKS OF 02/21/2019 JAMES VALDES DO E Ot Z3A.2 7 27 WEEKS GESTATION OF 03/27/2019 JAMES VALDES DO Ot O36.8130 DECREASED MOVEMENTS, THIRD TRIMEST 03/27/2019 JAMES VALDES DO Ot Z3A.3 1 31 WEEKS GESTATION OF 05/02/2019 LUCIO CUADRA, JAMES Lambert Ot O62.9 ABNORMALITY OF FORCES OF LABOR, UNSPECIF 05/02/2019 LUCIO CUDARA, JAMES E Ot Z3A.3 6 36 WEEKS GESTATION OF 05/12/2019 LUCIO CUADRA, JAMES E Ot O62.9 ABNORMALITY OF FORCES OF LABOR, UNSPECIF 05/12/2019 NALDOS , JAMES Lambert Ot Z3A.3 6 36 WEEKS GESTATION OF Procedures There is no data. Results Test Result Range Complete urinalysis with reflex to cultu re - 07/13/18 11:20 Urine color determination YELLOW NRG Urine clarity determination CLOUDY NR G Urine pH measurement by test strip 8.0 5-9 Specific gravity of urine by test strip 1.015 1.016-1.022 Urine protein assay by test strip, semi-quantitative NEGATIVE NEGATIVE Urine glucose detection by automated test strip NE GATIVE NEGATIVE Erythrocytes detection in urine sediment by light micr oscopy NEGATIVE NEGATIVE Urine ketones detection by automated test strip NE GATIVE NEGATIVE Urine nitrite detection by test strip NEGATIVE NEGATIVE Urine total bilirubin detection by test strip NEGA TIVE NEGATIVE Urine urobilinogen measurement by automated test strip (mass/volume) 0.2 mg/dL NORMAL Urine leukocyte esterase detection by dipstick TRA CE NEGATIVE Automated urine sediment erythrocyte cou nt by microscopy (number/high power field) [HPF] NRG Automated urine sediment leukocyte count by microscopy (number/high power field) [HPF] NRG Bacteria detection in urine sediment by light microsco py LARGE NRG Squamous epithelial cells detection in u rine sediment by light microscopy 5-10 NRG Crystals detection in urine sediment by light microsco py NONE NRG Casts detection in urine sediment by light microscopy NONE NRG Mucus detection in urine sediment by light microscopy NONE NRG Complete urinalysis with reflex to culture YES NRG Urine beta human chorionic gonadotropin (hCG) measurement - 07/13/18 11:20 Urine beta human chorionic gonadotropin (hCG) measurem ent NEGATIVE NEGATIVE Bacterial urine culture - 07/13/18 11:20 Bacterial urine culture 3 OR MORE NRG COLONY COUNT >100,000/ML NRG FTX;REPORTABLE GRAM POSITIVE ISOLATES; SUGGESTING NRG FREE TEXT ENTRY 2 PROBABLE COLLECTION CONTAMINATIO N WITH NRG FREE TEXT ENTRY 3 SKIN KRYSTYNA. NO SUSCEPTIBILITY PE RFORMED. NRG Chlamydia DNA amp probe, urine - 9 11:20 Chlamydia DNA amp probe, urine Not Detected Not Detected Urine Neisseria gonorrhoeae DNA assay - 07/13/18 11:20 Gonorrhea amp DNA-urine Not Detected No t Detected Complete blood count (CBC) with automate d white blood cell (WBC) differential - 07/13/18 12:11 Blood leukocytes automated count (number/volume) 18.3 10*3/uL 4.3-11.0 Blood erythrocytes automated count (number/volume) 4.92 10*6/uL 4.35-5.85 Venous blood hemoglobin measurement (mass/volume) 13.5 g/dL 11.5-16.0 Blood hematocrit (volume fraction) 41 % 35-52 Automated erythrocyte mean corpuscular volume 84 [ foz_us] 80-99 Automated erythrocyte mean corpuscular h emoglobin (mass per erythrocyte) 27 pg 25-34 Automated erythrocyte mean corpuscular h emoglobin concentration measurement (mass/volume) 33 g/dL 32-36 Automated erythrocyte distribution width ratio 13. 2 % 10.0- 14.5 Automated blood platelet count [...] 10*3 1.0-4.0 Blood monocytes automated count (number/volume) 1. 3 10*3 0.0-1.0 Automated eosinophil count 0.1 10*3/uL 0 .0-0.3 Automated blood basophil count (count/volume) 0.0 10*3/uL 0.0-0.1 Blood manual differential performed dete ction - 07/13/18 12:11 Blood monocytes/100 leukocytes 3 [...] 5-14 Serum or plasma urea nitrogen measurement (mass/volume ) 12 mg/dL 7-18 Serum or plasma creatinine measurement (mass/volume) 0.89 mg/dL 0.60-1.30 Serum or plasma urea nitrogen/creatinine mass ratio 13 NRG Serum or plasma creatinine measurement w ith calculation of estimated glomerular filtration rate > NRG Serum or plasma glucose measurement (mass/volume) 104 mg/dL 70-105 Serum or plasma calcium measurement (mass/volume) 8.9 mg/dL 8.5-10.1 Serum or plasma total bilirubin measurement (mass/volu me) 0.6 mg/dL 0.1-1.0 Serum or plasma alkaline phosphatase radha surement (enzymatic activity/volume) 68 U/L 40-136 Serum or plasma aspartate aminotransfera se measurement (enzymatic activity/volume) 15 U/L 5-34 Serum or plasma alanine aminotransferase measurement (enzymatic activity/volume) 15 U/L 0-55 Serum or plasma protein measurement (mass/volume) 7.4 g/dL 6.4-8.2 Serum or plasma albumin measurement (mass/volume) 4.0 g/dL 3.2-4.5 CALCIUM CORRECTED 8.9 mg/dL 8.5-10.1 TEST, SERUM (QUAL) - 09/28/18 11:06 HCG, TOTAL, QL POSITIVE See Note: SUREPATH PAP RFX HPV mRNA E6/E7 - 15:58 CLINICAL INFORMATION: NRG LMP: NRG PREV. PAP: NRG PREV. BX: NRG SOURCE: [employer] NRG STATEMENT OF ADEQUACY: NRG INTERPRETATION/RESULT: NRG QUALITY CONTROL PROJECTIONIST: NRG HPV mRNA E6/E7, SUREPATH VIAL Detected NOT DETECTED GENERAL CATEGORIZATION: NRG COMMENT: NRG PATHOLOGIST: NRG COMMENT NRG RUBELLA IMMUNE STATUS - 10/06/18 16:31 RUBELLA ANTIBODY (IGG) 0.97 index NRG Complete urinalysis with reflex to cultu re - 01/07/19 21:45 Urine color determination YELLOW NRG Urine clarity determination CLEAR NR G Urine pH measurement by test strip 6.0 5-9 Specific gravity of urine by test strip <= 1.016-1.022 Urine protein assay by test strip, semi-quantitative NEGATIVE NEGATIVE Urine glucose detection by automated test strip NE GATIVE NEGATIVE Erythrocytes detection in urine sediment by light micr oscopy NEGATIVE NEGATIVE Urine ketones detection by automated test strip NE GATIVE NEGATIVE Urine nitrite detection by test strip NEGATIVE NEGATIVE Urine total bilirubin detection by test strip NEGA TIVE NEGATIVE Urine urobilinogen measurement by automated test strip (mass/volume) 0.2 mg/dL NORMAL Urine leukocyte esterase detection by dipstick NEG ATIVE NEGATIVE Automated urine sediment erythrocyte cou nt by microscopy (number/high power field) NONE NRG Automated urine sediment leukocyte count by microscopy (number/high power field) [HPF] NRG Bacteria detection in urine sediment by light microsco py FEW NRG Squamous epithelial cells detection in u rine sediment by light microscopy 25-50 NRG Crystals detection in urine sediment by light microsco py NONE NRG Casts detection in urine sediment by light microscopy NONE NRG Mucus detection in urine sediment by light microscopy NEGATIVE NRG Complete urinalysis with reflex to culture YES NRG Bacterial urine culture - 01/07/19 21:45 Bacterial urine culture 3 OR MORE NRG COLONY COUNT >100,000/ML NRG FTX;REPORTABLE GRAM POSITIVE ISOLATES; SUGGESTING NRG FREE TEXT ENTRY 2 PROBABLE COLLECTION CONTAMINATIO N WITH NRG FREE TEXT ENTRY 3 SKIN KRYSTYNA. NO SUSCEPTIBILITY PE RFORMED. NRG Complete urinalysis with reflex to cultu re - 02/20/19 00:15 Urine color determination YELLOW NRG Urine clarity determination CLOUDY NR G Urine pH measurement by test strip 7.0 5-9 Specific gravity of urine by test strip 1.020 1.016-1.022 Urine protein assay by test strip, semi-quantitative NEGATIVE NEGATIVE Urine glucose detection by automated test strip NE GATIVE NEGATIVE Erythrocytes detection in urine sediment by light micr oscopy NEGATIVE NEGATIVE Urine ketones detection by automated test strip NE GATIVE NEGATIVE Urine nitrite detection by test strip NEGATIVE NEGATIVE Urine total bilirubin detection by test strip NEGA TIVE NEGATIVE Urine urobilinogen measurement by automated test strip (mass/volume) 0.2 mg/dL < = 1.0 Urine leukocyte esterase detection by dipstick TRA CE NEGATIVE Automated urine sediment erythrocyte cou nt by microscopy (number/high power field) NONE NRG Automated urine sediment leukocyte count by microscopy (number/high power field) [HPF] NRG Bacteria detection in urine sediment by light microsco py MODERATE NRG Squamous epithelial cells detection in u rine sediment by light microscopy 2-5 NRG Crystals detection in urine sediment by light microsco py PRESENT NRG Casts detection in urine sediment by light microscopy NONE NRG Mucus detection in urine sediment by light microscopy MODERATE NRG Complete urinalysis with reflex to culture CULTURE PENDING NRG Amorphous sediment detection in urine sediment by ligh t microscopy LARGE LEANNA URATES NRG Bacterial urine culture - 02/20/19 00:15 Bacterial urine culture 3 OR MORE NRG COLONY COUNT >100,000/ML NRG FTX;REPORTABLE (GRAM POSITIVE) SUGGESTING PROBABLE NRG FREE TEXT ENTRY 2 COLLECTIION CONTAMINATION WITH S KIN NRG FREE TEXT ENTRY 3 KRYSTYNA. NO SUSCEPTIBILITY PERFOR MED NRG GLUCOSE KRISTIE 1 HOUR - 03/09/19 16:24 GLUCOSE, POSTPRANDIAL/ 1 HOUR 107 mg/dL See Note: CBC - 03/09/19 16:24 WHITE BLOOD CELL COUNT 12.5 Thousand/uL 3.8-10.8 RED BLOOD CELL COUNT 3.82 Million/uL 3.8 0-5.10 HEMOGLOBIN 10.9 g/dL 11.7-15.5 HEMATOCRIT 32.3 % 35.0-45.0 MCV 84.6 fL 80.0-100.0 MCH 28.5 pg 27.0-33.0 MCHC 33.7 g/dL 32.0-36.0 RDW 13.0 % 11.0-15.0 PLATELET COUNT 273 Thousand/uL 140-400 MPV 11.2 fL 7.5-12.5 ABSOLUTE NEUTROPHILS 9388 cells/uL 1500- 7800 ABSOLUTE LYMPHOCYTES 2325 cells/uL 850-3 900 ABSOLUTE MONOCYTES 650 cells/uL 200-950 ABSOLUTE EOSINOPHILS 113 cells/uL 15-500 ABSOLUTE BASOPHILS 25 cells/uL 0-200 NEUTROPHILS 75.1 % NRG LYMPHOCYTES 18.6 % NRG MONOCYTES 5.2 % NRG EOSINOPHILS 0.9 % NRG BASOPHILS 0.2 % NRG SYPHILIS (RPR W/ REFLEX CONFIRMATION) - 03/09/19 16:24 RPR (DX) W/REFL TITER AND CONFIRMATORY TESTING NON-REACTIVE NON-REACTIVE Complete urinalysis with reflex to cultu re - 03/27/19 22:00 Urine color determination YELLOW NRG Urine clarity determination CLEAR NR G Urine pH measurement by test strip 7.0 5-9 Specific gravity of urine by test strip 1.010 1.016-1.022 Urine protein assay by test strip, semi-quantitative NEGATIVE NEGATIVE Urine glucose detection by automated test strip NE GATIVE NEGATIVE Erythrocytes detection in urine sediment by light micr oscopy NEGATIVE NEGATIVE Urine ketones detection by automated test strip NE GATIVE NEGATIVE Urine nitrite detection by test strip NEGATIVE NEGATIVE Urine total bilirubin detection by test strip NEGA TIVE NEGATIVE Urine urobilinogen measurement by automated test strip (mass/volume) 0.2 mg/dL < = 1.0 Urine leukocyte esterase detection by dipstick 1+ NEGATIVE Automated urine sediment erythrocyte cou nt by microscopy (number/high power field) NONE NRG Automated urine sediment leukocyte count by microscopy (number/high power field) [HPF] NRG Bacteria detection in urine sediment by light microsco py MODERATE NRG Squamous epithelial cells detection in u rine sediment by light microscopy 2-5 NRG Crystals detection in urine sediment by light microsco py NONE NRG Casts detection in urine sediment by light microscopy NONE NRG Mucus detection in urine sediment by light microscopy NEGATIVE NRG Complete urinalysis with reflex to culture NO NRG Complete urinalysis with reflex to cultu re - 05/02/19 17:15 Urine color determination YELLOW NRG Urine clarity determination CLEAR NR G Urine pH measurement by test strip 8.0 5-9 Specific gravity of urine by test strip 1.020 1.016-1.022 Urine protein assay by test strip, semi-quantitative NEGATIVE NEGATIVE Urine glucose detection by automated test strip NE GATIVE NEGATIVE Erythrocytes detection in urine sediment by light micr oscopy NEGATIVE NEGATIVE Urine ketones detection by automated test strip NE GATIVE NEGATIVE Urine nitrite detection by test strip NEGATIVE NEGATIVE Urine total bilirubin detection by test strip NEGA TIVE NEGATIVE Urine urobilinogen measurement by automated test strip (mass/volume) 0.2 mg/dL < = 1.0 Urine leukocyte esterase detection by dipstick NEG ATIVE NEGATIVE Automated urine sediment erythrocyte cou nt by microscopy (number/high power field) NONE NRG Automated urine sediment leukocyte count by microscopy (number/high power field) RARE NRG Bacteria detection in urine sediment by light microsco py NEGATIVE NRG Squamous epithelial cells detection in u rine sediment by light microscopy 2-5 NRG Crystals detection in urine sediment by light microsco py NONE NRG Casts detection in urine sediment by light microscopy NONE NRG Mucus detection in urine sediment by light microscopy NEGATIVE NRG Complete urinalysis with reflex to culture CULTURE PENDING NRG Bacterial urine culture - 05/02/19 17:15 Bacterial urine culture 3 OR MORE NRG COLONY COUNT 50,000 CFU/ML NRG FTX;REPORTABLE GRAM POSITIVES, SUGGESTING PROBABLE NRG FREE TEXT ENTRY 2 COLLECTION CONTAMINATION WITH SK IN KRYSTYNA NRG FREE TEXT ENTRY 3 NO SUSCEPTIBILITY PERFORMED NRG CULTURE, GROUP B STREP (VAGINAL) - 05/03 15:17 STREPTOCOCCUS, GROUP B CULTURE SEE NOTE NRG Complete urinalysis with reflex to cultu re - 05/16/19 00:05 Urine color determination YELLOW NRG Urine clarity determination CLEAR NR G Urine pH measurement by test strip 7.5 5-9 Specific gravity of urine by test strip 1.025 1.016-1.022 Urine protein assay by test strip, semi-quantitative 2+ NEGATIVE Urine glucose detection by automated test strip NE GATIVE NEGATIVE Erythrocytes detection in urine sediment by light micr oscopy NEGATIVE NEGATIVE Urine ketones detection by automated test strip NE GATIVE NEGATIVE Urine nitrite detection by test strip NEGATIVE NEGATIVE Urine total bilirubin detection by test strip NEGA TIVE NEGATIVE Urine urobilinogen measurement by automated test strip (mass/volume) 0.2 mg/dL < = 1.0 Urine leukocyte esterase detection by dipstick NEG ATIVE NEGATIVE Automated urine sediment erythrocyte cou nt by microscopy (number/high power field) NONE NRG Automated urine sediment leukocyte count by microscopy (number/high power field) [HPF] NRG Bacteria detection in urine sediment by light microsco py MODERATE NRG Squamous epithelial cells detection in u rine sediment by light microscopy 2-5 NRG Crystals detection in urine sediment by light microsco py NONE NRG Casts detection in urine sediment by light microscopy NONE NRG Mucus detection in urine sediment by light microscopy SMALL NRG Complete urinalysis with reflex to culture YES NRG Bacterial urine culture - 05/16/19 00:05 Bacterial urine culture 3 OR MORE NRG COLONY COUNT >100,000/ML NRG FTX;REPORTABLE SUGGESTING PROBABLE COLLECTION NRG FREE TEXT ENTRY 2 CONTAMINATION WITH SKIN KRYSTYNA NRG FREE TEXT ENTRY 3 NO SUSCEPTIBILITY PERFORMED NRG Complete blood count (CBC) with automate d white blood cell (WBC) differential - 05/16/19 02:45 Blood leukocytes automated count (number/volume) 13.4 10*3/uL 4.3-11.0 Blood erythrocytes automated count (number/volume) 3.98 10*6/uL 4.35-5.85 Venous blood hemoglobin measurement (mass/volume) 10.6 g/dL 11.5-16.0 Blood hematocrit (volume fraction) 33 % 35-52 Automated erythrocyte mean corpuscular volume 84 [ foz_us] 80-99 Automated erythrocyte mean corpuscular h emoglobin (mass per erythrocyte) 27 pg 25-34 Automated erythrocyte mean corpuscular h emoglobin concentration measurement (mass/volume) 32 g/dL 32-36 Automated erythrocyte distribution width ratio 15. 1 % 10.0- 14.5 Automated blood platelet count (count/volume) 187 10*3/uL 130-400 Automated blood platelet mean volume measurement 13.6 [foz_us] 7.4-10.4 Automated blood neutrophils/100 leukocytes 65 % 42-75 Automated blood lymphocytes/100 leukocytes 28 % 12-44 Blood monocytes/100 leukocytes 6 % 0-12 Automated blood eosinophils/100 leukocytes 1 % 0-10 Automated blood basophils/100 leukocytes 0 % 0-10 Blood neutrophils automated count (number/volume) 8.7 10*3 1.8-7.8 Blood lymphocytes automated count (number/volume) 3.8 10*3 1.0-4.0 Blood monocytes automated count (number/volume) 0. 7 10*3 0.0-1.0 Automated eosinophil count 0.1 10*3/uL 0 .0-0.3 Automated blood basophil count (count/volume) 0.0 10*3/uL 0.0-0.1 Blood type T Indirect antibody screen pa ra - 05/16/19 02:45 WRISTBAND NUMBER [id number] NRG ABO+Rh group ON NRG Blood group antibody screen NEGATIVE NR G Encounters ACCT No. Visit Date/Time Discharge Status Pt. Type Provider Facility Loc./Unit Complaint [id number] 05/10/2019 15:30:00 05/10/2019 23:59: 59 [id number] 05/03/2019 15:15:00 Document Registration [id number] 03/09/2019 15:00:00 Document Registration [id number] 10/06/2018 16:00:00 Document Registration [id number] 09/28/2018 09:30:00 Document Registration [id number] 05/02/2019 16:55:00 18:25:00 DIS Outpatient SEALS DO JAMES E [facility] WSo CONTRACTIONS [id number] 03/27/2019 21:46:00 22:35:00 DIS Outpatient SEALS DO JAMES E [facility] WSo DECREASED MOVEMEN T/CRAMPS [id number] 02/19/2019 23:52:00 08:18:00 DIS Outpatient SEALS DO JAMES E [facility] WSo CONTRACTIONS [id number] 01/07/2019 21:21:00 22:11:00 DIS Emergency SARAH SANCHEZ MD [facility] ER FS VAGINAL BLEEDING (20 WK PREG.) [id number] 09/18/2018 23:14:00 00:33:00 DIS Emergency SARAH SANCHEZ MD [facility] ER FS LEFT HAND PAIN [id number] 07/13/2018 11:06:00 13:33:00 DIS Emergency WYATT DE LA TORRE DO Via [facility] ER FS ABD PAIN; FEVER [id number] 05/22/2019 06:30:00 P EN Preadmit SEALS DO JAMES E I NDUCTION [id number] 05/16/2019 10:22:[address] Inpatient SEALS DO JAMES E [facility] LDRP LABOR
--- NOTE | 2019-05-18 13:30 | NUR ---
pt dismissed to rooming in status until dismissed from hospital. information given.
== END 2019-05-18 13:30 | disposition home or self-care (01) | DRG 807 ==
LOC: LDRP 23:59 → WSo 23:59 → LDRP 05-16 10:22 → WSo 05-16 10:22 → LDRP 05-17 04:15
PROVIDERS: ADMIT Obstetrics & Gynecology; ATTEND Obstetrics & Gynecology
PROC: 10E0XZZ Delivery of Products of Conception, External Approach (ICD-10-PCS; principal; 2019-05-17)
PROC: 10907ZC Drainage of Amniotic Fluid, Therapeutic from Products of Conception, Via Natural or Artificial Opening (ICD-10-PCS; 2019-05-17)
PROC: 0W8NXZZ Division of Female Perineum, External Approach (ICD-10-PCS; 2019-05-17)
DX: O80 Encounter for full-term uncomplicated delivery (principal); Z37.0 Single live birth; Z3A.38 38 weeks gestation of pregnancy; Z23 Encounter for immunization
CPT/HCPCS: 36415; 81000; 85025; 86850; 86900; 86901; 87088; 90707; 90715; 99212

== ENCOUNTER 2019-11-08 19:34 | Emergency (ER) | payer OTHER ==
[~2019-11-08] VITALS: Ht 154.9 cm; Wt 86.3 kg
[~2019-11-08 19:34] MED LIST changes: +ACET-93 PO; +DCS100C PO; +IBUP-1780 PO; +OXC5T PO
--- NOTE | 2019-11-08 19:56 | ED Cough/URI ---
General Chief Complaint: Fever-Adult/Adol Stated Complaint: FEVER,COUGH,SOA,CHILLS,BODY ACHING Source: patient History of Present Illness Date Seen by Provider: Nov 08, 2019 Time Seen by Provider: 19:53 Initial Comments 23-year-old female presents with fever, cough, some generalized body aches, chills, sore throat. She did notice a little bit of loss of smell but no loss of taste. No diarrhea or vomiting. Patient reports that yesterday she developed a fever and got sent home from work. Patient was seen in the clinic yesterday with a negative strep swab. She was tested by [facility] and results are not back yet. She comes in because she saw bit more short of breath. Allergies and Home Medications Allergies Coded Allergies: Sulfa (Sulfonamide Antibiotics) (Verified Allergy, Unknown, 07/13/18) Home Medications Acetaminophen 500 Mg Tablet, 1,000 MG PO Q6HR Prescribed by: JAMES VALDES on 05/18/19926 Docusate Sodium 100 Mg Capsule, 100 MG PO BID Prescribed by: JAMES E NALDOS on 05/18/19926 Ibuprofen 800 Mg Tablet, 800 MG PO Q8HR Prescribed by: JAMES E SEALS on 05/18/19926 Oxycodone Hcl 5 Mg Tab, 5 MG PO Q6H PRN for PAIN-SEVERE (8-10) Prescribed by: JAMES VALDES on 05/18/19926 Vit No.124/Iron/FA 1 Each Tablet, 1 EACH PO DAILY, (Reported) Patient Home Medication List Home Medication List Reviewed: Yes Review of Systems Review of Systems Constitutional: chills, fever EENTM: see HPI, throat pain, other (loss of smell) Respiratory: cough, short of breath Cardiovascular: No chest pain, No palpitations Gastrointestinal: No abdominal pain, No diarrhea, No nausea, No vomiting Genitourinary: no symptoms reported Musculoskeletal: no symptoms reported Skin: no symptoms reported Psychiatric/Neurological: No Symptoms Reported Hematologic/Lymphatic: No Symptoms Reported Past Jestmqr-Djglit-Nkkwtk Hx Past Med/Social Hx: Reviewed Nursing Past Med/Soc Hx Patient Social History 2nd Hand Smoke Exposure: No Recent Foreign Travel: No Contact w/Someone Who Travel: No Recent Hopitalizations: No Immunizations Up To Date PED Vaccines UTD: Yes Seasonal Allergies Seasonal Allergies: Yes (hayfever) Past Medical History Surgeries: Yes Abdominal, Gallbladder, Orthopedic Respiratory: No Cardiac: No Neurological: No Sexually Transmitted Disease: No HIV/AIDS: No Genitourinary: No Gastrointestinal: No Musculoskeletal: No Endocrine: No HEENT: No Cancer: No Psychosocial: No Integumentary: No Blood Disorders: No Adverse Reaction/Blood Tranf: No (n/a) Family Medical History Hypertension 19 FATHER Physical Exam Vital Signs - First Documented 11/08/19 19:45 Temp 36.4 Pulse 70 Resp 20 B/P (MAP) 131/76 (94) Pulse Ox 100 O2 Delivery Room Air Capillary Refill : Height: 5'2.00" Weight: 160lbs. oz. 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, alert, normal mood/affect, oriented x 3 Skin: normal color, warm/dry Progress/Results/Core Measures Suspected Sepsis SIRS Temperature: Pulse: Respiratory Rate: Laboratory Tests 11/08/19 20:15: White Blood Count 12.1H Blood Pressure / Mean: Laboratory Tests 11/08/19 20:15: Creatinine 0.83, Platelet Count 363, Total Bilirubin 0.2 Results/Orders Lab Results Laboratory Tests Test 11/08/19 20:15 Range/Units White Blood Count 12.1 H 4.3-11.0 10^3/uL Red Blood Count 4.99 4.35-5.85 10^6/uL Hemoglobin 12.3 11.5-16.0 G/DL Hematocrit 38 35-52 % Mean Corpuscular Volume 77 L 80-99 FL Mean Corpuscular Hemoglobin 25 25-34 PG Mean Corpuscular Hemoglobin Concent 32 32-36 G/DL Red Cell Distribution Width 15.4 H 10.0-14.5 % Platelet Count 363 130-400 10^3/uL Mean Platelet Volume 9.5 7.4-10.4 FL Neutrophils (%) (Auto) 53 42-75 % Lymphocytes (%) (Auto) 35 12-44 % Monocytes (%) (Auto) 7 0-12 % Eosinophils (%) (Auto) 4 0-10 % Basophils (%) (Auto) 1 0-10 % Neutrophils # (Auto) 6.4 1.8-7.8 X 10^3 Lymphocytes # (Auto) 4.3 H 1.0-4.0 X 10^3 Monocytes # (Auto) 0.8 0.0-1.0 X 10^3 Eosinophils # (Auto) 0.5 H 0.0-0.3 10^3/uL Basophils # (Auto) 0.1 0.0-0.1 10^3/uL Sodium Level 140 135-145 MMOL/L Potassium Level 3.8 3.6-5.0 MMOL/L Chloride Level 103 98-107 MMOL/L Carbon Dioxide Level 25 21-32 MMOL/L Anion Gap 12 5-14 MMOL/L Blood Urea Nitrogen 8 7-18 MG/DL Creatinine 0.83 0.60-1.30 MG/DL Estimat Glomerular Filtration Rate > 60 BUN/Creatinine Ratio 10 Glucose Level 104 70-105 MG/DL Calcium Level 9.1 8.5-10.1 MG/DL Corrected Calcium 8.9 8.5-10.1 MG/DL Total Bilirubin 0.2 0.1-1.0 MG/DL Aspartate Amino Transf (AST/SGOT) 14 5-34 U/L Alanine Aminotransferase (ALT/SGPT) 16 0-55 U/L Alkaline Phosphatase 88 40-136 U/L C-Reactive Protein 0.55 H <0.50 MG/DL Total Protein 7.3 6.4-8.2 GM/DL Albumin 4.2 3.2-4.5 GM/DL Monoscreen NEGATIVE NEGATIVE My Orders Orders - CALRTON,MAINE L DO Cbc With Automated Diff (11/08/19 19:56) Comprehensive Metabolic Panel (11/08/19 19:56) Procalcitonin (Pct) (11/08/19 19:56) Crp Fs (11/08/19 19:56) Chest 1 View Ap/Pa Only (11/08/19 19:56) Monotest (11/08/19 19:56) Vital Signs/I&O 11/08/19 19:45 Temp 36.4 Pulse 70 Resp 20 B/P (MAP) 131/76 (94) Pulse Ox 100 O2 Delivery Room Air Capillary Refill : Progress Note : Time: 20:56 Progress Note Patient with a negative chest x-ray. She did have a slight elevation of white count CRP eosinophils and lymphocytes. Patient's oxygen saturation was 98-99 throughout her stay in the ER. I discussed with her that she does have a viral illness. She was swabbed for COVID by her primary care provider is waiting results yesterday. Discussed that she does have symptoms of COVID but they overlap with many other viral illnesses. I recommend she follow cdc isolation guidelines until she gets a negative or positive COVID test back. That if she needs to fill shortness of breath that she gets a home pulse oximetry and m onitors it. That if it drops into the low 90s her upper 80 she should return to the ER for further evaluation. Patient is stable only discharged home Diagnostic Imaging Diagonstic Imaging: Xray Plain Films/CT/US/NM/MRI: chest Comments [facility]. [place], [place] NAME: [facility] REC#: [id number] PT STATUS: REG ER : 1995 PHYSICIAN: MAINE CARLTON DO ADMIT DATE: 11/08/19/ER FS Draft Date of Exam:11/08/19 CHEST 1 VIEW AP/PA ONLY INDICATION: Shortness of breath and cough. EXAMINATION: Single view of the chest was obtained. FINDINGS: The lungs are clear. No failure, effusion or pneumothorax. IMPRESSION: Negative. Departure Impression Primary Impression: Viral upper respiratory infection Disposition: 01 HOME, SELF-CARE Condition: Stable Departure-Patient Inst. Referrals: VANESSA FRANCO MD (PCP/Family) Primary Care Physician Patient Instructions: COVID19, Viral Syndrome (DC) Add. Discharge Instructions: Please follow CBC isolation and social distancing guidelines until COVID test returns. Return to the ER as needed All discharge instructions reviewed with patient and/or family. Voiced understanding. MAIEN CARLTON DO Nov 08, 2019 19:56
--- NOTE | 2019-11-08 20:16 | Diagnostic Imaging Report ---
INDICATION: Shortness of breath and cough. EXAMINATION: Single view of the chest was obtained. FINDINGS: The lungs are clear. No failure, effusion or pneumothorax. IMPRESSION: Negative. Dictated by: Dictated on workstation # [id number]
[2019-11-08 20:26] LABS: WHITE BLOOD COUNT 12.1 10^3/uL (4.3-11.0)
[2019-11-08 20:27] LABS: BASOPHILS % (AUTO) 1 % (0-10); EOSINOPHILS % (AUTO) 4 % (0-10); HEMATOCRIT 38 % (35-52); HEMOGLOBIN 12.3 G/DL (11.5-16.0); LYMPHOCYTES # (AUTO) 4.3 X 10^3 (1.0-4.0); LYMPHOCYTES % (AUTO) 35 % (12-44); MEAN CORPUSCULAR HEMOGLOBIN 25 PG (25-34); MEAN CORPUSCULAR HGB CONC 32 G/DL (32-36); MEAN CORPUSCULAR VOLUME 77 FL (80-99); MEAN PLATELET VOLUME 9.5 FL (7.4-10.4); MONOCYTES % (AUTO) 7 % (0-12); NEUTROPHILS # (AUTO) 6.4 X 10^3 (1.8-7.8); NEUTROPHILS % (AUTO) 53 % (42-75); PLATELET COUNT 363 10^3/uL (130-400)
[2019-11-08 20:29] LABS: BASOPHILS # (AUTO) 0.1 10^3/uL (0.0-0.1); EOSINOPHILS # (AUTO) 0.5 10^3/uL (0.0-0.3); MONOCYTES # (AUTO) 0.8 X 10^3 (0.0-1.0)
[2019-11-08 20:44] LABS: CARBON DIOXIDE 25 MMOL/L (21-32); CHLORIDE 103 MMOL/L (98-107); POTASSIUM 3.8 MMOL/L (3.6-5.0); SODIUM 140 MMOL/L (135-145)
[2019-11-08 20:45] LABS: ALANINE AMINOTRANSFERASE 16 U/L (0-55); ALBUMIN 4.2 GM/DL (3.2-4.5); ALKALINE PHOSPHATASE 88 U/L (40-136); BILIRUBIN,TOTAL 0.2 MG/DL (0.1-1.0); BUN/CREATININE RATIO 10; CALCIUM 9.1 MG/DL (8.5-10.1); CREATININE SERUM 0.83 MG/DL (0.60-1.30); GFR ESTIMATED > 60; GLUCOSE 104 MG/DL (70-105); TOTAL PROTEIN 7.3 GM/DL (6.4-8.2)
[2019-11-08 21:05] VITALS: BP 133/74
== END 2019-11-08 21:05 | disposition home or self-care (01) ==
LOC: EDUNIT# 19:34 → ER FS 19:36
DX: J06.9 Acute upper respiratory infection, unspecified (principal); Z88.2 Allergy status to sulfonamides; Z82.49 Family history of ischemic heart disease and other diseases of the circulatory system
CPT/HCPCS: 36415; 71045; 80053; 84145; 85025; 86141; 86308

== ENCOUNTER 2020-10-28 21:57 | Emergency (ER) | payer OTHER ==
[~2020-10-28] VITALS: Ht 154.9 cm; Wt 97.5 kg
[2020-10-28 22:26] VITALS: BP 131/74
--- NOTE | 2020-10-28 22:43 | ED Cough/URI ---
General Chief Complaint: Cough/Cold/Flu Symptoms Stated Complaint: SORE THROAT,HEAD ACHE,RUNNING NOSE,COUGH Nursing Triage Note: PT AMBULATE TO ROOM FS05 WITH C/O COUGH, HEADACHE, RUNNY NOSE, AND CONGESTION SINCE THIS MORNING. PT STATES SHE WORKS FROM HOME. 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 Source: patient Exam Limitations: no limitations History of Present Illness Date Seen by Provider: Oct 28, 2020 Time Seen by Provider: 22:25 Initial Comments 24-year-old female with no significant past medical history coming in due to 1 day of cough, headache, runny nose, congestion all started in the morning. She states she works from home and needs a Covid test so that she can go back to work tomorrow. Denies any fever, vomiting, diarrhea, chest pain, shortness of breath, or any other concerns. She states her symptoms are mild and constant. She is not vaccinated against Covid. Allergies and Home Medications Allergies Coded Allergies: Sulfa (Sulfonamide Antibiotics) (Verified Allergy, Unknown, 07/13/18) Home Medications Acetaminophen 500 Mg Tablet, 1,000 MG PO Q6HR Prescribed by: JAMES VALDES on 05/18/19926 Docusate Sodium 100 Mg Capsule, 100 MG PO BID Prescribed by: JAMES VALDES on 05/18/19926 Ibuprofen 800 Mg Tablet, 800 MG PO Q8HR Prescribed by: JAMES HITCHCOCKS on 05/18/19926 Oxycodone Hcl 5 Mg Tab, 5 MG PO Q6H PRN for PAIN-SEVERE (8-10) Prescribed by: JAMES VALDES on 05/18/19926 Vit No.124/Iron/FA 1 Each Tablet, 1 EACH PO DAILY, (Reported) Patient Home Medication List Home Medication List Reviewed: Yes Review of Systems Review of Systems Constitutional: No chills, No fever EENTM: No blurred vision Respiratory: cough; No short of breath Cardiovascular: No chest pain Gastrointestinal: No abdominal pain, No diarrhea, No nausea, No vomiting Genitourinary: No dysuria Musculoskeletal: No back pain Skin: No rash Psychiatric/Neurological: Denies Anxiety Hematologic/Lymphatic: No Symptoms Reported Immunological/Allergic: no symptoms reported All Other Systems Reviewed Negative Unless Noted: Yes Past Eambdun-Bxnlxx-Zcixwb Hx Patient Social History Tobacco Use?: No Smoking Status: Never a Smoker Substance use?: No Alcohol Use?: No Immunizations Up To Date Tetanus Booster (TDap): Unknown PED Vaccines UTD: Yes Seasonal Allergies Seasonal Allergies: Yes (hayfever) Past Medical History Surgeries: Yes Abdominal, Gallbladder, Orthopedic Respiratory: No Cardiac: No Neurological: No Sexually Transmitted Disease: No HIV/AIDS: No Genitourinary: No Gastrointestinal: No Musculoskeletal: No Endocrine: No HEENT: No Cancer: No Psychosocial: No Integumentary: No Blood Disorders: No Adverse Reaction/Blood Tranf: No (n/a) Family Medical History Hypertension 19 FATHER Physical Exam Vital Signs - First Documented 10/28/20 22:26 Temp 36.8 Pulse 87 Resp 18 B/P (MAP) 131/74 (93) O2 Delivery Room Air Capillary Refill : Less Than 3 Seconds Height: 5'2.00" Weight: 160lbs. oz. 72.530733ul; 40.00 BMI Method:Stated General Appearance: WD/WN, no apparent distress Eyes: Bilateral Eye Normal Inspection, Bilateral Eye PERRL HEENT: PERRL/EOMI, normal ENT inspection, TMs normal, pharynx normal Neck: non-tender, full range of motion, supple, normal inspection Respiratory: chest non-tender, lungs clear, normal breath sounds, no respiratory distress, no accessory muscle use Cardiovascular: regular rate, rhythm, no edema, no murmur Gastrointestinal: normal bowel sounds, non tender, soft; No distended, No guarding Extremities: normal range of motion, non-tender, normal inspection, no pedal edema, no calf tenderness Neurologic/Psychiatric: no motor/sensory deficits, alert, normal mood/affect Skin: normal color, warm/dry Lymphatic: no adenopathy Progress/Results/Core Measures Suspected Sepsis SIRS Temperature: Pulse: 87 Respiratory Rate: 18 Blood Pressure 131 /74 Mean: 93 Results/Orders My Orders Orders - KASIE MEHTA MD Covid 19 Inhouse Test (10/28/20 22:37) Vital Signs/I&O 10/28/20 10/28/20 22:26 22:30 Temp 36.8 Pulse 87 Resp 18 B/P (MAP) 131/74 (93) O2 Delivery Room Air Room Air Capillary Refill : Less Than 3 Seconds Blood Pressure Mean: 93 Progress Note : Progress Note 24-year-old female with above history coming in due to URI-like symptoms. ABCs were intact and vitals were stable on presentation. Physical exam reassuring with no focal abnormalities. Overall she is well-appearing. Covid test sent, and of course this is a send out that we will get back until tomorrow. I discussed this with the patient and told her she will need to isolate until results are back. She was agreeable to this. I believe she is stable for discharge. She was sent home with strict return precautions Departure Impression Primary Impression: Person under investigation for COVID-19 Disposition: HOME, SELF-CARE Condition: Stable Departure-Patient Inst. Decision time for Depature: 22:41 Referrals: VANESSA FRANCO MD (PCP/Family) Primary Care Physician Patient Instructions: COVID-19 (DC) Add. Discharge Instructions: You were seen in the emergency department for upper respiratory infection-like symptoms. Covid test was sent and will be pending over the next 24 hours. Please isolate in the meantime until you have a negative result. Take ibuprofen or Tylenol for sore throat. All discharge instructions reviewed with patient and/or family. Voiced understanding. KASIE MEHTA MD Oct 28, 2020 22:42
== END 2020-10-28 22:55 | disposition home or self-care (01) ==
LOC: EDUNIT# 21:57 → ER FS 21:59
DX: Z20.822 Contact with and (suspected) exposure to COVID-19 (principal)
CPT/HCPCS: 87636; 99282

== ENCOUNTER 2021-05-14 20:00 | Emergency (ER) | payer OTHER, MEDICAID ==
[~2021-05-14] VITALS: Ht 154.9 cm; Wt 100.8 kg
[2021-05-14 20:00] VITALS: BP 122/62
[~2021-05-14 20:00] MED LIST changes: -DCS100C PO; +DOCU-239 PO
--- NOTE | 2021-05-14 22:06 | ED General ---
General Chief Complaint: Cough/Cold/Flu Symptoms Stated Complaint: FEVER,COUGH,HAND NUMBNESS Nursing Triage Note: Pt c/o cough and fever of 99 that began this am. Pt denies SOA or being around anyone that has been sick. Source of Information: Patient Exam Limitations: No Limitations History of Present Illness Date Seen by Provider: May 14, 2021 Time Seen by Provider: 20:07 Initial Comments This 25-year-old young lady presents primarily complaining of an episode of shortness of breath when she returned home from work today. At that time she also experienced some weakness in her hands and nausea. She has had some cough today as well. She reports having COVID-19 about a month ago which was identified by a home test. Symptoms have since resolved. Allergies and Home Medications Allergies Coded Allergies: Sulfa (Sulfonamide Antibiotics) (Verified Allergy, Unknown, 07/13/18) Patient Home Medication List Home Medication List Reviewed: Yes Acetaminophen (Acetaminophen) 500 Mg Tablet, 1,000 MG PO Q6HR Prescribed by: JAMES VALDES on 05/18/19926 Docusate Sodium (Dok) 100 Mg Capsule, 100 MG PO BID Prescribed by: JAMES VALDES on 05/18/19926 Ibuprofen (Ibuprofen) 800 Mg Tablet, 800 MG PO Q8HR Prescribed by: JAMES VALDES on 05/18/19926 Oxycodone Hcl (Oxycodone IR) 5 Mg Tab, 5 MG PO Q6H PRN for PAIN-SEVERE (8-10) Prescribed by: JAMES VALDES on 05/18/19926 Vit No.124/Iron/FA ( Vitamin Tablet) 1 Each Tablet, 1 EACH PO DAILY, (Reported) Entered as Reported by: HARRIS CHE on 03/27/192229 Review of Systems Review of Systems Constitutional: no symptoms reported EENTM: no symptoms reported Respiratory: see HPI Cardiovascular: no symptoms reported Gastrointestinal: see HPI, nausea Genitourinary: no symptoms reported : No LMP: May 05, 2021 Musculoskeletal: no symptoms reported Skin: no symptoms reported Psychiatric/Neurological: See HPI Hematologic/Lymphatic: No Symptoms Reported Immunological/Allergic: no symptoms reported Past Whtcfwk-Zfrtuu-Zrsgcp Hx Patient Social History Tobacco Use?: No Use of E-Cig and/or Vaping dev: No Substance use?: No Pt feels they are or have been: No Immunizations Up To Date Tetanus Booster (TDap): Unknown PED Vaccines UTD: Yes Influenza Vaccine Up-to-Date: No; Not Current First/Initial COVID19 Vaccinat: denies Seasonal Allergies Seasonal Allergies: Yes (hayfever) Past Medical History Surgeries: Yes Abdominal, Gallbladder, Orthopedic Respiratory: No Cardiac: No Neurological: No Sexually Transmitted Disease: No HIV/AIDS: No Genitourinary: No Gastrointestinal: No Musculoskeletal: No Endocrine: No HEENT: No Cancer: No Psychosocial: No Integumentary: No Blood Disorders: No Adverse Reaction/Blood Tranf: No (n/a) Family Medical History Hypertension 19 FATHER Physical Exam Vital Signs Vital Signs - First Documented 05/14/21 20:00 Temp 37.6 Pulse 100 Resp 17 B/P (MAP) 122/62 (82) Pulse Ox 100 O2 Delivery Room Air Capillary Refill : Less Than 3 Seconds Height, Weight, BMI Height: 5'2.00" Weight: 160lbs. oz. 72.221271km; 42.00 BMI Method:Stated General Appearance: No Apparent Distress, WD/WN HEENT: PERRL/EOMI, TMs Normal, Normal ENT Inspection, Pharynx Normal Neck: Normal Inspection Respiratory: Lungs Clear, Normal Breath Sounds, No Accessory Muscle Use Cardiovascular: Regular Rate, Rhythm, No Edema, No Murmur Gastrointestinal: Non Tender, Soft Extremity: Normal Inspection, No Pedal Edema Neurologic/Psychiatric: Alert, Oriented x3, No Motor/Sensory Deficits, Normal Mood/Affect, dye range tender II-XII Norm as Tested Skin: Normal Color, Warm/Dry Progress/Results/Core Measures Suspected Sepsis SIRS Temperature: Pulse: 100 Respiratory Rate: 17 Blood Pressure 122 /62 Mean: 82 Results/Orders Lab Results Laboratory Tests Test 05/14/21 20:15 Range/Units Influenza Type A Antigen NEGATIVE NEGATIVE Influenza Type B Antigen NEGATIVE NEGATIVE My Orders Orders - KEON BETANCOURT MD Coronavirus Sars-Cov-2 So 2019 (05/14/21 20:07) Influenza A & B Antigens (05/14/21 21:24) Vital Signs/I&O 05/14/21 05/14/21 20:00 22:13 Temp 37.6 Pulse 100 89 Resp 17 15 B/P (MAP) 122/62 (82) Pulse Ox 100 100 O2 Delivery Room Air Capillary Refill : Less Than 3 Seconds Blood Pressure Mean: 82 Progress Note : Progress Note Influenza screen was negative. Vital signs were normal. COVID-19 screen pending. Departure Impression Primary Impression: Flu-like symptoms Additional Impression: Person under investigation for COVID-19 Disposition: 01 HOME, SELF-CARE Condition: Stable Departure-Patient Inst. Decision time for Depature: 22:04 Referrals: VANESSA FRANCO MD (PCP/Family) Primary Care Physician Patient Instructions: Asthma in Adults, COVID-19 ED Add. Discharge Instructions: Drink plenty of clear liquids. Start with a clear liquid diet and gradually advance your diet as tolerated. Use your albuterol inhaler as previously directed for wheezing or shortness of breath. Quarantine at home until the result of your COVID-19 test is known. Use Tylenol (acetaminophen) and/or ibuprofen for fever or discomfort. Call with questions or concerns. Return to the ER if you have any worsening of condition. All discharge instructions reviewed with patient and/or family. Voiced understanding. KEON BETANCOURT MD May 14, 2021 22:06
== END 2021-05-14 22:12 | disposition home or self-care (01) ==
LOC: EDUNIT# 20:00 → ER FS 20:01
DX: J11.1 Influenza due to unidentified influenza virus with other respiratory manifestations (principal); Z20.822 Contact with and (suspected) exposure to COVID-19
CPT/HCPCS: 87635; 87636; 87804

== ENCOUNTER → 2021-10-10 | Outpatient (CLI) | payer OTHER, MEDICAID | LOC: LABNPT 14:36 | PROVIDERS: ATTEND Registered Nurse Emergency | DX: Z01.419 Encounter for gynecological examination (general) (routine) without abnormal findings (principal); N89.8 Other specified noninflammatory disorders of vagina | CPT/HCPCS: 87210; 87491; 87591 ==